=== PATIENT | female | born 2000 | race Caucasian/White ===

== ENCOUNTER 2019-11-17 05:39 | Emergency (ER) | payer OTHER ==
[~2019-11-17] VITALS: Ht 152.4 cm; Wt 54.5 kg
[2019-11-17] MEDS ORDERED: SPRI28TA PO (05:44)
[2019-11-17] MEDS ORDERED: NS 1,000 ML IV ONE (06:30)
[2019-11-17 06:46] LABS: BASO # 0.1 10^3/uL (0.0-0.2); BASO % 0.5 % (0.0-1.0); EOS # 0.3 10^3/uL (0.0-0.5); EOS % 2.9 % (0.0-3.0); HEMATOCRIT 43.5 % (36.0-47.0); HEMOGLOBIN 13.9 g/dl (12.0-15.5); LYMPH # 3.2 10^3/uL (1.5-5.0); LYMPH % 28.8 % (24.0-44.0); MEAN CORPUSCULAR HEMOGLOBIN 30.1 pg (27.0-33.0); MEAN CORPUSCULAR VOLUME 94.2 fl (80.0-96.0); MONO # 0.7 10^3/uL (0.0-0.8); MONO % 6.5 % (0.0-5.0); NEUTROPHILS # 6.8 10^3/uL (1.5-8.5); NEUTROPHILS % 60.9 % (36.0-66.0); PLATELET COUNT, AUTOMATED 273 10^3/uL (150-450); RED BLOOD COUNT 4.62 10^6/uL (4.00-5.40); WHITE BLOOD COUNT 11.1 10^3/uL (4.0-10.0)
[2019-11-17 07:11] LABS: BLOOD UREA NITROGEN 10 MG/DL (7-18); CALCIUM LEVEL 8.1 MG/DL (8.5-10.1); CARBON DIOXIDE LEVEL 27 MEQ/L (21-32); CHLORIDE LEVEL 110 MEQ/L (98-107); CK-MB VALUE MASS < 1.0 NG/ML (<3.6); CPK CREATINE PHOSPHOKINASE 54 U/L (26-192); CREATININE FOR GFR 0.76 MG/DL (0.55-1.30); GLOMERULAR FILTRATION RATE > 60.0 (>60); GLUCOSE, FASTING 96 MG/DL (70-100); MB/CK RELATIVE INDEX 1.85 (< OR =4); POTASSIUM SERUM 4.1 MEQ/L (3.5-5.1); SODIUM LEVEL 143 MEQ/L (136-145); TROPONIN I < 0.02 NG/ML (< 0.10)
[2019-11-17 07:11] LABS: INFLUENZA A AMPLIFICATION NEGATIVE (NEGATIVE); INFLUENZA B AMPLIFICATION NEGATIVE (NEGATIVE)
--- NOTE | 2019-11-17 08:16 | REP ---
Left humerus: Two views. History: Left arm pain. Findings: AP and lateral views demonstrate an intravenous cannula in the antecubital fossa soft tissues. Bones joints and soft tissues are otherwise unremarkable. No fracture or subluxation is seen. Impression: No acute bony abnormality. IV cannula in place. Electronically Signed by Manfred Calles MD 11/17/2019 08:08 A
[2019-11-17 11:07] LABS: AMPHETAMINES LEVEL URINE NEGATIVE (NEGATIVE); BARBITURATES URINE NEGATIVE (NEGATIVE); BENZODIAZEPINES URINE NEGATIVE (NEGATIVE); CANNABINOIDS URINE NEGATIVE (NEGATIVE); COCAINE METABOLITE URINE NEGATIVE (NEGATIVE); METHADONE URINE NEGATIVE (NEGATIVE); OPIATES URINE NEGATIVE (NEGATIVE); PHENCYCLIDINE URINE NEGATIVE (NEGATIVE)
[2019-11-17 11:22] VITALS: BP 110/68
== END 2019-11-17 11:31 | disposition home or self-care (01) ==
LOC: M ED 05:39
DX: M79.622 Pain in left upper arm (principal); M62.838 Other muscle spasm; R53.81 Other malaise; F17.210 Nicotine dependence, cigarettes, uncomplicated; Z79.3 Long term (current) use of hormonal contraceptives

== ENCOUNTER 2019-12-20 19:46 | Emergency (ER) | payer OTHER ==
[~2019-12-20] VITALS: Ht 152.4 cm; Wt 54.0 kg
[~2019-12-20 19:46] MED LIST: SPRI28TA PO
[2019-12-20] MEDS ORDERED: FAMOTIDINE IV BAG 20 MG in IV 1 EA IV ONE (20:30)
[2019-12-20] MEDS ORDERED: methylPREDNISolone INJ 125 MG/2 ML VIAL (J2930) IV ONE (20:30)
[2019-12-20] MEDS ORDERED: diphenhydrAMINE INJ 50MG/ML VIAL (J1200) IV ONE (20:30)
[2019-12-20] MEDS ORDERED: PRED20TA PO (21:58)
[2019-12-20 22:11] VITALS: BP 116/71
== END 2019-12-20 22:15 | disposition home or self-care (01) ==
LOC: M ED 19:46
DX: R06.02 Shortness of breath (principal); T78.1XXA Other adverse food reactions, not elsewhere classified, initial encounter; Z91.013 Allergy to seafood; Z79.3 Long term (current) use of hormonal contraceptives
CPT/HCPCS: 96374; 96375; 99284; J1200; J2930

== ENCOUNTER 2020-02-05 16:03 | Day surgery (SDC) | payer OTHER ==
[~2020-02-05] VITALS: Ht 152.4 cm; Wt 59.4 kg
[~2020-02-05 16:03] MED LIST changes: +PRED20TA PO
[2020-02-05] MEDS ORDERED: KETOROLAC 30 MG/ML VIAL (J1885) IV ONE (16:45)
[2020-02-05] MEDS ORDERED: ONDANSETRON 4MG/2ML VIAL (J2405) IV ONE (16:45)
[2020-02-05 17:17] LABS: BASO % 0.7 % (0.0-1.0); EOS # 0.3 10^3/uL (0.0-0.5); EOS % 5.3 % (0.0-3.0); HEMATOCRIT 41.3 % (36.0-47.0); HEMOGLOBIN 13.3 g/dl (12.0-15.5); LYMPH # 1.8 10^3/uL (1.5-5.0); MEAN CORPUSCULAR HEMOGLOBIN 30.4 pg (27.0-33.0); MEAN CORPUSCULAR HGB CONC 32.2 g/dl (32.0-36.5); MEAN CORPUSCULAR VOLUME 94.3 fl (80.0-96.0); MONO # 0.4 10^3/uL (0.0-0.8); MONO % 6.8 % (0.0-5.0); NEUTROPHILS # 3.3 10^3/uL (1.5-8.5); NEUTROPHILS % 56.9 % (36.0-66.0); PLATELET COUNT, AUTOMATED 245 10^3/uL (150-450); RED BLOOD COUNT 4.38 10^6/uL (4.00-5.40); WHITE BLOOD COUNT 5.8 10^3/uL (4.0-10.0)
--- NOTE | 2020-02-05 17:30 | REPVR ---
PROCEDURE INFORMATION: Exam: CT Abdomen And Pelvis Without Contrast Exam date and time: 02/05/2020 5:09 PM Age: 19 years old Clinical indication: Abdominal pain; Flank; Right; Additional info: Right flank/ lower abd pain TECHNIQUE: Imaging protocol: Computed tomography of the abdomen and pelvis without contrast. Radiation optimization: All CT scans at this facility use at least one of these dose optimization techniques: automated exposure control; mA and/or kV adjustment per patient size (includes targeted exams where dose is matched to clinical indication); or iterative reconstruction. COMPARISON: No relevant prior studies available. FINDINGS: Lungs: No lesions of the lung bases. Liver: There are no focal liver lesions present. Gallbladder and bile ducts: The gallbladder is normal. Pancreas: The pancreas is normal. Spleen: The spleen is normal. Adrenals: The adrenal glands are unremarkable. Kidneys and ureters: No renal calculi are apparent. There is no evidence of hydronephrosis or perinephric stranding. Stomach and bowel: There is no evidence of intestinal obstruction. Appendix: No evidence of appendicitis. Intraperitoneal space: There is prominent free fluid within the pelvis. Vasculature: The aorta is unremarkable. Lymph nodes: Unremarkable. No enlarged lymph nodes. Bladder: The bladder is unremarkable. Reproductive: There appears to be enlargement of the right adnexa but it is not well visualized. There is a poorly defined denser structure within the cul-de-sac likely partially representing the vagina measuring 5.1 x 6.8 cm. Bones/joints: Unremarkable. No acute fracture. Soft tissues: Unremarkable. IMPRESSION: There is a relatively prominent volume of free fluid in the pelvis which could be due to cyst rupture or infection. The uterus and ovaries as well as vagina are poorly assessed on this noncontrast study and could be further evaluated by ultrasound or MRI. The radiodense structure is likely in part the vagina however some hemorrhagic fluid is not excluded. Electronically signed by: Cyndi Pro On 02/05/2020 17:30:08 PM
[2020-02-05 17:57] LABS: ALBUMIN 3.6 GM/DL (3.2-5.2); ALT/SGPT 12 U/L (12-78); BILIRUBIN,DIRECT < 0.1 MG/DL (0.0-0.2); BILIRUBIN,TOTAL 0.3 MG/DL (0.2-1.0); LIPASE 126 U/L (73-393)
[2020-02-05] MEDS ORDERED: MORPHINE 4 MG/ML 1ML VIAL/SYRINGE (J2270) IV ONE (18:00)
--- NOTE | 2020-02-05 19:09 | REPVR ---
PROCEDURE INFORMATION: Exam: US Pelvis Complete, Transabdominal and US Pelvis, Transvaginal Exam date and time: 02/05/2020 6:45 PM Age: 19 years old Clinical indication: Pelvic pain; Additional info: Rlq pain TECHNIQUE: Imaging protocol: Real-time transabdominal and transvaginal pelvic ultrasound (complete) with image documentation. Transvaginal imaging was used for better evaluation of the endometrium and adnexa. COMPARISON: CT ABD PELVIS W/O CONTRAST 02/05/2020 5:06 PM FINDINGS: Uterus/cervix: Uterus measures 7.1 x 3.4 by 4.2 cm. The endometrial is bilayer is not thickened measuring 5.8 mm. Right adnexa: Right ovary measures 4.9 x 3.4 x 4.1 cm. Blood flow is detected. There is a heterogeneous but primarily hypoechoic lesion measuring 3.9 x 1.7 by 4.1 cm. Left adnexa: The left ovary measures 4.2 x 2.5 by 2.8 cm. Blood flow is detected. Free fluid: There is a large amount of free fluid within the pelvis. Bladder: Urinary bladder is unremarkable. Other findings: There is complex hyperechoic material within the cul-de-sac which may represent clotted blood. It measures 5.8 by 3.1 by 8.1 cm. IMPRESSION: 1. There is a probable large hematoma which is thrombosed in the cul-de-sac measuring approximately 5.8 x 3.1 x 8.1 cm. Free fluid is seen throughout the pelvis. 2. Normal appearance of the uterus and left ovary. 3. A cystic structure is seen in the right ovary measuring 3.9 x 1.7 x 4.1 cm which could represent a collapsing hemorrhagic cyst. 4. The etiology of the hemorrhage in the cul-de-sac is not definitely identified. Electronically signed by: Cyndi Pro On 02/05/2020 19:09:04 PM
[2020-02-05] MEDS ORDERED: fentaNYL 250 MCG/5 ML INJECTION (J3010) As Ordered ONE (20:18)
[2020-02-05] MEDS ORDERED: ONDANSETRON 4MG/2ML VIAL (J2405) As Ordered ONE (20:19)
[2020-02-05] MEDS ORDERED: dexameTHASONE 4 MG/ML 1ML VIAL (J1100 PER 1MG) As Ordered ONE (20:19)
[2020-02-05] MEDS ORDERED: KETOROLAC 60 MG/2 ML VIAL (J1885) As Ordered ONE (20:19)
[2020-02-05] MEDS ORDERED: LIDOCAINE 2% INJ 100 MG/5 ML SDV (FOR ANES.) As Ordered ONE (20:19)
[2020-02-05] MEDS ORDERED: ROCURONIUM BROMIDE 50 MG/5 ML VIAL As Ordered ONE (20:19)
[2020-02-05] MEDS ORDERED: MIDAZOLAM INJ 2 MG/2 ML VIAL (J2250) As Ordered ONE (20:19)
[2020-02-05] MEDS ORDERED: propofoL 200 MG/20 ML VIAL As Ordered ONE (20:19)
[2020-02-05] MEDS ORDERED: ACETAMINOPHEN 1000MG 100ML IV BTL (OFIRMEV) (J0131 PER 10MG) As Ordered ONE (21:02)
[2020-02-05] MEDS ORDERED: METOCLOPRAMIDE INJ 10MG/2ML VIAL (J2765) As Ordered ONE (21:18)
[2020-02-05] MEDS ORDERED: LR 1,000 ML IV SCH ×2 (22:00→22:30)
[2020-02-05] MEDS ORDERED: oxyCODONE 5MG TAB As Ordered ONE (22:09)
--- NOTE | 2020-02-05 22:14 | RO ---
DATE OF PROCEDURE: 02/05/2020 PREOPERATIVE DIAGNOSES: Right ovarian torsion. POSTOPERATIVE DIAGNOSES: Hemorrhagic right ovarian cyst. PROCEDURE: SURGEON: Rosalinda Levine MD HAND STRIPER: None. ANESTHESIA: General endotracheal anesthesia. SPECIMENS: None. BRIEF DESCRIPTION OF PROCEDURE: Day was brought to the operating room where sufficient general endotracheal anesthesia was induced. She was prepped, draped, and positioned in the usual sterile fashion with the uterine manipulator placed after the uterus had been sounded to 7.5. The bladder was also emptied. Attention was then turned to the abdomen where a transverse semilunar incision was made below the umbilicus and sharp and blunt dissection were continued to the level of the rectus fascia, which was transversely incised and then secured with #0 Vicryl retention sutures. The peritoneum was then entered under direct visualization. There was no gross blood upon entry into the abdomen and the Doreen cannula was then placed into the peritoneum and under direct visualization in an open laparoscopic technique and secured in place with a #0 Vicryl retention suture. CO2 insufflations were then begun. After adequate CO2 insufflation, the peritoneal cavity was visualized. There were normal shiny peritoneal surfaces throughout. There was no excrescence, exudate or ascites, but there was in the pelvis some bleeding and a slightly enlarged right ovary. There was no evidence of torsion. There was no evidence of disruption of blood supply. There was a normal appearing appendix which is photographed for the operative photos. There were about 300 mL of older darkish blood in the pelvis. There was no active bleeding from the ovary. We were able to manipulate it and see that it had basically deflated from what is most likely a hemorrhagic cyst and it is very likely that as this left the ovary, the presence of the blood was the source of the patient's pain and irritation. She did not have any upper abdominal problems. We placed a little Trendelenburg to move the bowel out of the way. We were able to suction out about 300 mL of blood which was clearly old and not actively bleeding during the case. No other abnormalities. Photos were taken to document the reassuring findings. The ovary was very gently manipulated to reevaluate it. There was no evidence of persistent bleeding or other trouble. The procedure was then ended with the CO2 allowed to escape the abdomen. The fascial wound was closed with #0 Vicryl retention sutures and the skin closed with #3-0 Vicryl in a subcuticular stitch, and a dry sterile dressing then applied. ESTIMATED BLOOD LOSS: From the actual surgery, about 10 mL. FLUID REPLACEMENT: Crystalloid. COMPLICATIONS: None. CONDITION AND DISPOSITION: Day tolerated the procedure well and was recovering in the recovery room in good condition.
[2020-02-05] MEDS ORDERED: NORCO, ANEXSIA 5/325MG TABLET (HYDROcodone/ACETAMINOPHEN) PO PRN (22:30)
[2020-02-05] MEDS ORDERED: fentaNYL 100 MCG/2 ML INJECTION (J3010) IV PRN (22:30)
[2020-02-05] MEDS ORDERED: ONDANSETRON 4MG/2ML VIAL (J2405) IV PRN (22:30)
[2020-02-05] MEDS ORDERED: oxyCODONE 5MG TAB PO PRN (22:30)
[2020-02-05 23:04] VITALS: BP 133/75
== END 2020-02-06 00:20 | disposition home or self-care (01) ==
LOC: M ED 16:03 → M SDC 19:58 → ENRESERV 22:20 → M MS5PR 22:35 → M SDC 02-06 00:20
PROVIDERS: ATTEND Obstetrics & Gynecology
DX: N83.291 Other ovarian cyst, right side (principal); Z91.013 Allergy to seafood
CPT/HCPCS: 36415; 49320; 76830; 76856; 80047; 80076; 81001; 83690; 84702; 85025; 96374; 96375; 99284; J0131; J1100; J1885; J2250; J2270; J2405; J2765; J3010

== ENCOUNTER 2020-02-27 20:21 | Emergency (ER) | payer OTHER ==
[~2020-02-27] VITALS: Ht 154.9 cm; Wt 56.8 kg
[2020-02-27 20:21] VITALS: BP 112/74
[2020-02-27] MEDS ORDERED: ALL10TAB2 PO (20:48)
[2020-02-27] MEDS ORDERED: MUCI600T31 PO (20:48)
[2020-02-27] MEDS ORDERED: NASA1SPR NARES (20:48)
[2020-02-27] MEDS ORDERED: VENTAER INH (20:48)
== END 2020-02-27 21:08 | disposition home or self-care (01) ==
LOC: M ED 20:21
DX: J30.9 Allergic rhinitis, unspecified (principal); F17.210 Nicotine dependence, cigarettes, uncomplicated; Z91.013 Allergy to seafood; Z79.51 Long term (current) use of inhaled steroids; Z79.899 Other long term (current) drug therapy

== ENCOUNTER 2020-04-28 01:54 | Emergency (ER) | payer OTHER ==
[~2020-04-28] VITALS: Ht 154.9 cm; Wt 54.5 kg
[~2020-04-28 01:54] MED LIST changes: +ALL10TAB2 PO; +MUCI600T31 PO; +NASA1SPR NARES; +VENTAER INH
[2020-04-28 02:56] LABS: HEMATOCRIT 42.8 % (36.0-47.0); HEMOGLOBIN 13.8 g/dl (12.0-15.5); MEAN CORPUSCULAR HEMOGLOBIN 29.6 pg (27.0-33.0); MEAN CORPUSCULAR HGB CONC 32.2 g/dl (32.0-36.5); MEAN CORPUSCULAR VOLUME 91.8 fl (80.0-96.0); PLATELET COUNT, AUTOMATED 287 10^3/uL (150-450); RED BLOOD COUNT 4.66 10^6/uL (4.00-5.40); WHITE BLOOD COUNT 8.8 10^3/uL (4.0-10.0)
[2020-04-28 03:19] LABS: HCG, SERUM QUALITATIVE NEGATIVE (NEGATIVE)
[2020-04-28 03:20] LABS: ALBUMIN 3.8 GM/DL (3.2-5.2); ALT/SGPT 18 U/L (12-78); BILIRUBIN,TOTAL < 0.1 MG/DL (0.2-1.0); BLOOD UREA NITROGEN 9 MG/DL (7-18); CALCIUM LEVEL 9.2 MG/DL (8.5-10.1); CARBON DIOXIDE LEVEL 27 MEQ/L (21-32); CHLORIDE LEVEL 108 MEQ/L (98-107); GLOMERULAR FILTRATION RATE > 60.0 (>60); GLUCOSE, FASTING 80 MG/DL (70-100); POTASSIUM SERUM 4.3 MEQ/L (3.5-5.1); SODIUM LEVEL 140 MEQ/L (136-145); TOTAL PROTEIN 7.3 GM/DL (6.4-8.2)
[2020-04-28 04:27] LABS: APPEARANCE, URINE HAZY (CLEAR); BACTERIA, URINE AUTO NEGATIVE (NEGATIVE); BILIRUBIN, URINE AUTO NEGATIVE (NEGATIVE); BLOOD, URINE BLOOD NEGATIVE (NEGATIVE); COLOR, URINE YELLOW (YELLOW); GLUCOSE, URINE (UA) AUTO NEGATIVE (NEGATIVE); KETONE, URINE AUTO NEGATIVE (NEGATIVE); LEUKOCYTE ESTERASE, URINE AUTO NEGATIVE (NEGATIVE); MUCUS, URINE SMALL (NEGATIVE); NITRITE, URINE AUTO NEGATIVE (NEGATIVE); PROTEIN, URINE AUTO NEGATIVE (NEGATIVE); RBC, URINE AUTO 3 /HPF (0-3); SPECIFIC GRAVITY URINE AUTO 1.028 (1.002-1.035); SQUAMOUS EPITHELIAL CELL UR AU 3 /HPF (0-6); UROBILINOGEN, URINE AUTO 0.2 mg/dL (0.0-2.0); WBC, URINE AUTO 2 /HPF (0-3)
[2020-04-28] MEDS ORDERED: ISOVUE-370 76% 100ML VIAL As Ordered ONE (04:47)
--- NOTE | 2020-04-28 05:12 | REPVR ---
PROCEDURE INFORMATION: Exam: CT Abdomen And Pelvis With Contrast Exam date and time: 04/28/2020 4:12 AM Age: 20 years old Clinical indication: Abdominal pain; Localized; Right lower quadrant (rlq); Additional info: Rlq pain TECHNIQUE: Imaging protocol: Computed tomography of the abdomen and pelvis with intravenous contrast. Radiation optimization: All CT scans at this facility use at least one of these dose optimization techniques: automated exposure control; mA and/or kV adjustment per patient size (includes targeted exams where dose is matched to clinical indication); or iterative reconstruction. Contrast material: ISO; Contrast volume: 100 ml; Contrast route: INTRAVENOUS (IV); COMPARISON: CT ABD PELVIS W/O CONTRAST 02/05/2020 5:06 PM FINDINGS: Liver: Normal. No mass. Gallbladder and bile ducts: Normal. No calcified stones. No ductal dilation. Pancreas: Normal. No ductal dilation. Spleen: Normal. No splenomegaly. Adrenals: Normal. No mass. Kidneys and ureters: Normal. No hydronephrosis. Stomach and bowel: Unremarkable. No obstruction. No mucosal thickening. Appendix: Appendix is normal. Intraperitoneal space: Unremarkable. No free air. No significant fluid collection. Vasculature: Unremarkable. No abdominal aortic aneurysm. Lymph nodes: Unremarkable. No enlarged lymph nodes. Bladder: Unremarkable as visualized. Reproductive: Uterus is normal. Thick-walled cystic lesion in the left ovary measuring 1.7 x 1.3 cm. Bones/joints: Pectus excavatum. No acute fracture. Soft tissues: Unremarkable. IMPRESSION: 1. Appendix is unremarkable. 2. Thick-walled cystic lesion in the left ovary. Probably corpus luteum. No follow-up is necessary. Electronically signed by: Stephanie Hall On 04/28/2020 05:11:27 AM
[2020-04-28 05:53] LABS: CHLAMYDIA DNA AMPLIFICATION NEGATIVE (NEGATIVE); GC DNA AMPLIFICATION NEGATIVE (NEGATIVE)
[2020-04-28] MEDS ORDERED: NORCO 5/325MG TABLET (BULK FOR ED) PO ONE (06:15)
[2020-04-28 06:18] VITALS: BP 124/70
== END 2020-04-28 06:19 | disposition home or self-care (01) ==
LOC: M ED 01:54
DX: N83.202 Unspecified ovarian cyst, left side (principal)
CPT/HCPCS: 74177; 80053; 81001; 84703; 85027; 87491; 87591; 99283; Q9967

== ENCOUNTER 2020-04-30 17:26 | Emergency (ER) | payer OTHER ==
[~2020-04-30] VITALS: Ht 154.9 cm; Wt 55.8 kg
[2020-04-30] MEDS ORDERED: CELE1CAP9 (17:31)
[2020-04-30] MEDS ORDERED: KETOROLAC 30 MG/ML 1ML VIAL IV ONE (18:15)
[2020-04-30 18:40] LABS: BASO # 0.1 10^3/uL (0.0-0.2); BASO % 0.5 % (0.0-1.0); EOS # 0.4 10^3/uL (0.0-0.5); EOS % 3.6 % (0.0-3.0); HEMATOCRIT 43.1 % (36.0-47.0); HEMOGLOBIN 13.9 g/dl (12.0-15.5); LYMPH # 1.7 10^3/uL (1.5-5.0); LYMPH % 16.4 % (24.0-44.0); MEAN CORPUSCULAR HEMOGLOBIN 29.8 pg (27.0-33.0); MEAN CORPUSCULAR HGB CONC 32.3 g/dl (32.0-36.5); MEAN CORPUSCULAR VOLUME 92.5 fl (80.0-96.0); MONO # 0.7 10^3/uL (0.0-0.8); MONO % 6.8 % (0.0-5.0); NEUTROPHILS # 7.6 10^3/uL (1.5-8.5); NEUTROPHILS % 72.3 % (36.0-66.0); PLATELET COUNT, AUTOMATED 248 10^3/uL (150-450); RED BLOOD COUNT 4.66 10^6/uL (4.00-5.40); WHITE BLOOD COUNT 10.5 10^3/uL (4.0-10.0)
[2020-04-30 19:41] LABS: ALBUMIN 3.5 GM/DL (3.2-5.2); BILIRUBIN,DIRECT 0.1 MG/DL (0.0-0.2); BILIRUBIN,TOTAL 0.2 MG/DL (0.2-1.0); TOTAL PROTEIN 6.6 GM/DL (6.4-8.2)
--- NOTE | 2020-04-30 20:27 | REPVR ---
PROCEDURE INFORMATION: Exam: US Nonobstetric Pelvis; Complete Exam date and time: 04/30/2020 7:34 PM Age: 20 years old Clinical indication: Pelvic pain; Additional info: Lower abd pain, more severe pain, known cyst TECHNIQUE: Imaging protocol: Transabdominal pelvic nonobstetric ultrasound. Complete exam. Real time ultrasound with image documentation. COMPARISON: US PELVIC NON-OB COMPLETE 02/05/2020 6:13 PM FINDINGS: Uterus/cervix: The uterus measures 7.6 x 3.2 x 5.2 cm. The endometrium measures 3.1 mm in width. Right adnexa: Right ovary measures 3.4 x 1.8 x 3.5 cm. Follicles are apparent. Blood flow is detected. Left adnexa: Left ovary measures 3.6 x 1.6 x 2.2 cm. Follicles are apparent. Blood flow is detected. Free fluid: No significant free fluid in the cul-de-sac. Bladder: Unremarkable. IMPRESSION: The uterus and ovaries are normal in appearance for age. Electronically signed by: Cyndi Pro On 04/30/2020 20:26:36 PM
[2020-04-30] MEDS ORDERED: KETO10TAB PO (20:58)
[2020-04-30 21:10] VITALS: BP 113/66
== END 2020-04-30 21:12 | disposition home or self-care (01) ==
LOC: M ED 17:26
DX: N92.0 Excessive and frequent menstruation with regular cycle (principal); J45.909 Unspecified asthma, uncomplicated; Z79.899 Other long term (current) drug therapy; Z91.013 Allergy to seafood
CPT/HCPCS: 36415; 76856; 80047; 80076; 81001; 83690; 84702; 85025; 93976; 96374; 99284; J1885

== ENCOUNTER 2020-07-02 23:38 | Emergency (ER) | payer OTHER ==
[~2020-07-02] VITALS: Ht 154.9 cm; Wt 54.5 kg
[~2020-07-02 23:38] MED LIST changes: +CELE1CAP9; +KETO10TAB PO
[2020-07-02] MEDS ORDERED: PREN29TA4 PO (23:45)
[2020-07-03] MEDS ORDERED: NS 1,000 ML IV ONE (00:15)
[2020-07-03] MEDS ORDERED: ACETAMINOPHEN 500 MG TAB PO ONE (00:15)
[2020-07-03] MEDS ORDERED: ONDANSETRON 4MG/2ML VIAL IV ONE (00:15)
[2020-07-03] MEDS ORDERED: METAL LOCK LOOP XX ONE (00:43)
[2020-07-03 00:51] LABS: BASO # 0.1 10^3/uL (0.0-0.2); BASO % 0.7 % (0.0-1.0); EOS # 0.5 10^3/uL (0.0-0.5); EOS % 4.3 % (0.0-3.0); HEMATOCRIT 40.6 % (36.0-47.0); HEMOGLOBIN 13.5 g/dl (12.0-15.5); LYMPH # 2.8 10^3/uL (1.5-5.0); LYMPH % 26.5 % (24.0-44.0); MEAN CORPUSCULAR HEMOGLOBIN 30.5 pg (27.0-33.0); MEAN CORPUSCULAR HGB CONC 33.3 g/dl (32.0-36.5); MEAN CORPUSCULAR VOLUME 91.6 fl (80.0-96.0); MONO # 0.8 10^3/uL (0.0-0.8); MONO % 7.4 % (0.0-5.0); NEUTROPHILS # 6.4 10^3/uL (1.5-8.5); NEUTROPHILS % 60.9 % (36.0-66.0); PLATELET COUNT, AUTOMATED 307 10^3/uL (150-450); RED BLOOD COUNT 4.43 10^6/uL (4.00-5.40); WHITE BLOOD COUNT 10.4 10^3/uL (4.0-10.0)
--- NOTE | 2020-07-03 01:01 | REPVR ---
PROCEDURE INFORMATION: Exam: US First Trimester, Transabdominal Exam date and time: 07/03/2020 12:40 AM Age: 20 years old Clinical indication: complicated by abdominal or pelvic pain; Right lower quadrant; First trimester; Gestational age or lmp: 05/31/2020; ; Additional info: +at home preg, pelvic pain, HX torsion TECHNIQUE: Imaging protocol: Real-time transabdominal obstetrical ultrasound of the maternal pelvis and a first trimester , less than 14 weeks 0 days, with image documentation. COMPARISON: CT ABD/PEL W/IV CONTRAST ONLY 04/28/2020 4:48 AM FINDINGS: Gestation: See "Uterus" finding. MATERNAL: Uterus: The uterus measures 8.1 cm in its cephalocaudad dimension and 4.5 x 6.3 cm in its AP and lateral dimensions. The endometrium measures 11 mm. No gestational sac is seen. Cervix: Unremarkable. Right adnexa: The right ovary measures 2.3 x 1.9 x 2.4 cm and demonstrates normal blood flow. Left adnexa: The left ovary measures 2.7 x 2.4 x 3.0 cm and demonstrates normal blood flow. Intraperitoneal space: No intraperitoneal free fluid. Other findings: EV exam is declined. IMPRESSION: Negative pelvic sonogram. No intrauterine gestational sac is identified. Findings may reflect recent spontaneous AB or very early gestation. Ectopic is not excluded. Serial beta hCG levels may be of benefit for further evaluation. Electronically signed by: Missael Heller On 07/03/2020 01:00:52 AM
[2020-07-03 01:37] LABS: BLOOD UREA NITROGEN 16 MG/DL (7-18); CALCIUM LEVEL 8.9 MG/DL (8.5-10.1); CARBON DIOXIDE LEVEL 24 MEQ/L (21-32); CHLORIDE LEVEL 108 MEQ/L (98-107); CREATININE FOR GFR 0.66 MG/DL (0.55-1.30); GLOMERULAR FILTRATION RATE > 60.0 (>60); GLUCOSE, FASTING 89 MG/DL (70-100); HCG, SERUM QUANTITATIVE 530 MIU/ML; POTASSIUM SERUM 4.9 MEQ/L (3.5-5.1); SODIUM LEVEL 137 MEQ/L (136-145)
[2020-07-03] MEDS ORDERED: ONDA4TAB6 PO (01:54)
[2020-07-03 02:02] VITALS: BP 117/66
== END 2020-07-03 02:09 | disposition home or self-care (01) ==
LOC: M ED 23:38
DX: O99.89 Other specified diseases and conditions complicating pregnancy, childbirth and the puerperium (principal); R10.2 Pelvic and perineal pain; O99.330 Smoking (tobacco) complicating pregnancy, unspecified trimester; F17.200 Nicotine dependence, unspecified, uncomplicated; Z3A.00 Weeks of gestation of pregnancy not specified; Z87.42 Personal history of other diseases of the female genital tract; Z98.890 Other specified postprocedural states; Z84.2 Family history of other diseases of the genitourinary system
CPT/HCPCS: 76801; 80048; 81001; 84702; 85025; 93976; 96374; 99284; J2405

== ENCOUNTER 2020-07-09 12:00 | Emergency (ER) | payer OTHER ==
[~2020-07-09] VITALS: Ht 152.4 cm; Wt 54.5 kg
[~2020-07-09 12:00] MED LIST changes: +ONDA4TAB6 PO; +PREN29TA4 PO
[2020-07-09 12:32] LABS: BASO % 0.5 % (0.0-1.0); EOS # 0.5 10^3/uL (0.0-0.5); HEMATOCRIT 40.9 % (36.0-47.0); HEMOGLOBIN 13.5 g/dl (12.0-15.5); MEAN CORPUSCULAR HEMOGLOBIN 30.8 pg (27.0-33.0); MEAN CORPUSCULAR VOLUME 93.4 fl (80.0-96.0); MONO # 0.7 10^3/uL (0.0-0.8); MONO % 8.3 % (0.0-5.0); NEUTROPHILS # 4.6 10^3/uL (1.5-8.5); NEUTROPHILS % 58.9 % (36.0-66.0); PLATELET COUNT, AUTOMATED 275 10^3/uL (150-450); RED BLOOD COUNT 4.38 10^6/uL (4.00-5.40); WHITE BLOOD COUNT 7.9 10^3/uL (4.0-10.0)
[2020-07-09 13:16] LABS: BLOOD UREA NITROGEN 6 MG/DL (7-18); CALCIUM LEVEL 9.1 MG/DL (8.5-10.1); CARBON DIOXIDE LEVEL 26 MEQ/L (21-32); CHLORIDE LEVEL 109 MEQ/L (98-107); CREATININE FOR GFR 0.58 MG/DL (0.55-1.30); GLOMERULAR FILTRATION RATE > 60.0 (>60); GLUCOSE, FASTING 63 MG/DL (70-100); HCG, SERUM QUANTITATIVE 4780 MIU/ML; POTASSIUM SERUM 3.8 MEQ/L (3.5-5.1); SODIUM LEVEL 139 MEQ/L (136-145)
--- NOTE | 2020-07-09 14:58 | REPVR ---
PROCEDURE INFORMATION: Exam: US First Trimester, Transabdominal and US , Transvaginal US Duplex Artery and Vein of the Abdominal and/or Reproductive Organs, Complete Exam date and time: 07/09/2020 2:25 PM Age: 20 years old Clinical indication: complicated by abdominal or pelvic pain; Lower; First trimester; Gestational age or lmp: 05/31/2020; ; Additional info: Pelvic cramping, 5-6 weeks preg TECHNIQUE: Imaging protocol: Real-time transabdominal obstetrical ultrasound of the maternal pelvis and a first trimester , less than 14 weeks 0 days, with image documentation. Transvaginal imaging was used for better evaluation of the fetus and adnexa. Real-time duplex ultrasound scan of the arterial and venous flow of the abdominal and/or reproductive organs with B-mode, color Doppler flow and spectral waveform analysis with image documentation. Exam focused on the region of clinical concern. Complete exam. Duplex images required to evaluate vascular conditions. COMPARISON: 1ST TRIMESTER US 07/03/2020 12:29 AM FINDINGS: Gestation: There is a new single intrauterine sac-like structure with mean diameter of 6 mm, corresponding to an estimated gestational age of 5 weeks 1 day, were it to represent a gestational sac. It appears to contain a small yolk sac, without pole or heart tones identified. MATERNAL: Uterus: The anteverted uterus measures 9.7 x 4.3 x 4.8 cm transvaginally. It is homogeneous in echotexture, without demonstrated lesion. Right adnexa: The right ovary measures 2.3 x 1.8 x 2.7 cm as seen transabdominally only. It has an unremarkable appearance and demonstrates internal arterial and venous flow. Peak systolic velocity 13.1 cm/s, end-diastolic velocity 9.0 cm/s, resistive index 0.32. Left adnexa: The left ovary measures 2.9 x 3.0 x 1.9 cm, as seen transvaginally only. Newly demonstrated within it is a 1.6 x 1.4 x 1.6 cm slightly hypoechoic, questionably vascular lesion. There is internal arterial and venous flow. Peak systolic velocity 14.7 cm/s, end-diastolic velocity 6.6 cm/s, resistive index 0.56. Intraperitoneal space: No significant free fluid is demonstrated in the cul-de-sac, nor is any extraovarian adnexal mass. IMPRESSION: 1. Intrauterine gestational sac-like structure, new since 07/03/20, which would correspond to an estimated gestational age of 5 weeks 1 day were it to represent a gestational sac. It appears to have a yolk sac, without pole or heart tones identified. 2. New 1.6 cm slightly hypoechoic, questionably vascular lesion in the left ovary, could represent a complex corpus luteum or less likely an ectopic given the presence of the new intrauterine sac-like structure. Recommend close clinical correlation, with serial beta-HCGs and followup ultrasound as clinically appropriate. 3. Unremarkable right ovary. 4. Normal internal flow to both ovaries without torsion. Electronically signed by: Malik Davis On 07/09/2020 14:57:48 PM
[2020-07-09 15:51] VITALS: BP 128/79
== END 2020-07-09 15:53 | disposition home or self-care (01) ==
LOC: M ED 12:00
DX: O34.81 Maternal care for other abnormalities of pelvic organs, first trimester (principal); N83.202 Unspecified ovarian cyst, left side; Z87.42 Personal history of other diseases of the female genital tract; O99.331 Smoking (tobacco) complicating pregnancy, first trimester; F17.210 Nicotine dependence, cigarettes, uncomplicated; Z3A.01 Less than 8 weeks gestation of pregnancy; Z91.013 Allergy to seafood

== ENCOUNTER → 2020-07-11 | Outpatient (CLI) | payer OTHER ==
[~2020-07-11] MED LIST changes: +PROC1CRE TOP; +REGL10TA6 PO
== END ==
LOC: M LAB 11:32
PROVIDERS: ATTEND Physician Assistant
DX: Z32.00 Encounter for pregnancy test, result unknown (principal)

== ENCOUNTER 2020-07-12 19:22 | Emergency (ER) | payer OTHER ==
[~2020-07-12] VITALS: Ht 154.9 cm; Wt 54.5 kg
[~2020-07-12 19:22] MED LIST changes: -PROC1CRE TOP; -REGL10TA6 PO
[2020-07-12 20:10] LABS: BASO # 0.1 10^3/uL (0.0-0.2); BASO % 0.6 % (0.0-1.0); EOS # 0.4 10^3/uL (0.0-0.5); EOS % 3.8 % (0.0-3.0); HEMATOCRIT 43.2 % (36.0-47.0); LYMPH # 2.6 10^3/uL (1.5-5.0); LYMPH % 23.5 % (24.0-44.0); MEAN CORPUSCULAR HGB CONC 32.4 g/dl (32.0-36.5); MEAN CORPUSCULAR VOLUME 92.7 fl (80.0-96.0); MONO # 0.9 10^3/uL (0.0-0.8); MONO % 8.3 % (0.0-5.0); NEUTROPHILS # 6.9 10^3/uL (1.5-8.5); NEUTROPHILS % 63.6 % (36.0-66.0); PLATELET COUNT, AUTOMATED 317 10^3/uL (150-450); RED BLOOD COUNT 4.66 10^6/uL (4.00-5.40); WHITE BLOOD COUNT 10.9 10^3/uL (4.0-10.0)
--- NOTE | 2020-07-12 22:34 | REPVR ---
PROCEDURE INFORMATION: Exam: US First Trimester, Transabdominal Exam date and time: 07/12/2020 9:37 PM Age: 20 years old Clinical indication: Lmp or gestational age (in weeks): 05/31/20; Antepartum complications; Bleeding; ; Additional info: Vaginal spotting, 5 wks preg TECHNIQUE: Imaging protocol: Real-time transabdominal obstetrical ultrasound of the maternal pelvis and a first trimester , less than 14 weeks 0 days, with image documentation. COMPARISON: 1ST TRIMESTER US 07/09/2020 2:08 PM FINDINGS: Gestation: The mean gestational sac diameter is 1.23 cm. A single intrauterine gestational sac is identified, with yolk sac. No pole is identified at this time. Embryonic/ heart rate: N/A. Placenta: No visualized subchorionic bleed. Amniotic fluid: Amniotic fluid is subjectively normal for gestational age. BIOMETRY: Gestational age (AUA): The estimated gestational age is 6 weeks 0 days. Estimated due date (AUA): The estimated date of delivery is 03/07/2021. MATERNAL: Uterus: The uterus measures 8.1 x 4.6 x 4.9 cm. No uterine mass identified. Cervix: Limited evaluation. Right adnexa: There is preservation of blood flow within the right ovary. Multiple follicles are identified within the right ovary. Left adnexa: There is preservation of blood flow within the left ovary. A small hypoechoic focus is visualized within the left ovary. This is suggestive of a follicle or small cyst. This is subcentimeter in size. Intraperitoneal space: No intraperitoneal free fluid. IMPRESSION: 1. A single intrauterine gestational sac is identified, with yolk sac. No pole is identified at this time. Follow-up ultrasonography is recommended. 2. The estimated gestational age is 6 weeks 0 days. 3. A subcentimeter hypoechoic focus is visualized within the left ovary. This is suggestive of a follicle or small cyst. Electronically signed by: Jackson Ramos On 07/12/2020 22:34:08 PM
[2020-07-12 23:00] VITALS: BP 112/72
== END 2020-07-12 23:01 | disposition home or self-care (01) ==
LOC: M ED 19:22
DX: O46.91 Antepartum hemorrhage, unspecified, first trimester (principal); O99.331 Smoking (tobacco) complicating pregnancy, first trimester; Z3A.01 Less than 8 weeks gestation of pregnancy; Z91.013 Allergy to seafood

== ENCOUNTER 2020-07-30 18:42 | Emergency (ER) | payer OTHER ==
[~2020-07-30] VITALS: Ht 154.9 cm; Wt 54.2 kg
[2020-07-30 19:18] LABS: BASO # 0.1 10^3/uL (0.0-0.2); BASO % 0.5 % (0.0-1.0); EOS # 0.3 10^3/uL (0.0-0.5); HEMATOCRIT 41.3 % (36.0-47.0); HEMOGLOBIN 13.7 g/dl (12.0-15.5); LYMPH # 2.3 10^3/uL (1.5-5.0); LYMPH % 22.3 % (24.0-44.0); MEAN CORPUSCULAR HEMOGLOBIN 30.3 pg (27.0-33.0); MEAN CORPUSCULAR HGB CONC 33.2 g/dl (32.0-36.5); MEAN CORPUSCULAR VOLUME 91.4 fl (80.0-96.0); MONO # 0.7 10^3/uL (0.0-0.8); MONO % 6.6 % (0.0-5.0); NEUTROPHILS # 6.8 10^3/uL (1.5-8.5); NEUTROPHILS % 67.3 % (36.0-66.0); PLATELET COUNT, AUTOMATED 277 10^3/uL (150-450); RED BLOOD COUNT 4.52 10^6/uL (4.00-5.40); WHITE BLOOD COUNT 10.1 10^3/uL (4.0-10.0)
[2020-07-30 20:04] LABS: BLOOD UREA NITROGEN 6 MG/DL (7-18); CALCIUM LEVEL 9.1 MG/DL (8.5-10.1); CARBON DIOXIDE LEVEL 26 MEQ/L (21-32); CHLORIDE LEVEL 106 MEQ/L (98-107); CREATININE FOR GFR 0.49 MG/DL (0.55-1.30); GLOMERULAR FILTRATION RATE > 60.0 (>60); GLUCOSE, FASTING 85 MG/DL (70-100); HCG, SERUM QUANTITATIVE 77918 MIU/ML; POTASSIUM SERUM 4.2 MEQ/L (3.5-5.1); SODIUM LEVEL 139 MEQ/L (136-145)
[2020-07-30 20:50] VITALS: BP 128/75
--- NOTE | 2020-07-30 20:57 | REPVR ---
PROCEDURE INFORMATION: Exam: US First Trimester, Transabdominal Exam date and time: 07/30/2020 8:01 PM Age: 20 years old Clinical indication: Lmp or gestational age (in weeks): 8; Other: Vag bleeding; ; Additional info: Bleeding in preg TECHNIQUE: Imaging protocol: Real-time transabdominal obstetrical ultrasound of the maternal pelvis and a first trimester , less than 14 weeks 0 days, with image documentation. COMPARISON: 1ST TRIMESTER US 07/12/2020 9:23 PM FINDINGS: Gestation: Single gestational sac demonstrated in the uterus. Single pole demonstrated within the gestational sac with a crown-rump length of 19 mm. Embryonic/ heart rate: heart rate is 163 bpm. Placenta: Unremarkable. No subchorionic bleed. Amniotic fluid: Amniotic fluid is normal for gestational age. BIOMETRY: Gestational age (AUA): Gestational age based on crown-rump length is 8 weeks 4 days which corresponds to LMP of 05/31/2020. MATERNAL: Uterus: Unremarkable. Cervix: Unremarkable. Right adnexa: Unremarkable. Left adnexa: Unremarkable. Intraperitoneal space: No intraperitoneal free fluid. IMPRESSION: Unremarkable 1st trimester scan at 8 weeks 4 days with concordant size and clinical dates of 8 weeks 4 days. Electronically signed by: Mark Finley On 07/30/2020 20:57:12 PM
[2020-07-30 22:45] LABS: CHLAMYDIA DNA AMPLIFICATION NEGATIVE (NEGATIVE); GC DNA AMPLIFICATION NEGATIVE (NEGATIVE)
== END 2020-07-30 20:59 | disposition home or self-care (01) ==
LOC: M ED 18:42
DX: O20.9 Hemorrhage in early pregnancy, unspecified (principal); Z3A.08 8 weeks gestation of pregnancy; O99.331 Smoking (tobacco) complicating pregnancy, first trimester; F17.210 Nicotine dependence, cigarettes, uncomplicated; Z87.42 Personal history of other diseases of the female genital tract; Z91.013 Allergy to seafood

== ENCOUNTER 2020-08-01 22:18 | Emergency (ER) | payer OTHER ==
[~2020-08-01] VITALS: Ht 154.9 cm; Wt 54.1 kg
[2020-08-01 22:19] VITALS: BP 119/73
== END 2020-08-02 00:21 | disposition home or self-care (01) ==
LOC: M ED 22:18
DX: O99.511 Diseases of the respiratory system complicating pregnancy, first trimester (principal); J02.8 Acute pharyngitis due to other specified organisms; O99.891 Other specified diseases and conditions complicating pregnancy; R30.0 Dysuria; Z3A.08 8 weeks gestation of pregnancy; O99.331 Smoking (tobacco) complicating pregnancy, first trimester; F17.210 Nicotine dependence, cigarettes, uncomplicated

== ENCOUNTER → 2020-08-06 | Outpatient (REF) | payer OTHER ==
[~2020-08-06] MED LIST changes: +PROC1CRE TOP; +REGL10TA6 PO
[2020-08-06 17:47] LABS: HEMATOCRIT 43.6 % (36.0-47.0); HEMOGLOBIN 14.2 g/dl (12.0-15.5); MEAN CORPUSCULAR HEMOGLOBIN 30.3 pg (27.0-33.0); MEAN CORPUSCULAR HGB CONC 32.6 g/dl (32.0-36.5); PLATELET COUNT, AUTOMATED 305 10^3/uL (150-450); RED BLOOD COUNT 4.69 10^6/uL (4.00-5.40); WHITE BLOOD COUNT 12.4 10^3/uL (4.0-10.0)
[2020-08-06 19:01] LABS: HEPATITIS C VIRUS ABY INDEX 0.2 INDEX (<0.8); HIV 1&2 SCREEN CENTAUR NEGATIVE (NEGATIVE)
== END ==
LOC: M PLALAB 15:07
PROVIDERS: ATTEND Obstetrics & Gynecology
DX: Z34.01 Encounter for supervision of normal first pregnancy, first trimester (principal)

== ENCOUNTER 2020-08-14 21:02 | Emergency (ER) | payer OTHER ==
[~2020-08-14] VITALS: Ht 154.9 cm; Wt 54.5 kg
[~2020-08-14 21:02] MED LIST changes: -PROC1CRE TOP; -REGL10TA6 PO
[2020-08-14 22:16] LABS: BASO % 0.3 % (0.0-1.0); EOS # 0.3 10^3/uL (0.0-0.5); EOS % 3.2 % (0.0-3.0); HEMATOCRIT 40.9 % (36.0-47.0); HEMOGLOBIN 13.4 g/dl (12.0-15.5); LYMPH # 2.2 10^3/uL (1.5-5.0); LYMPH % 22.9 % (24.0-44.0); MEAN CORPUSCULAR HEMOGLOBIN 30.3 pg (27.0-33.0); MEAN CORPUSCULAR HGB CONC 32.8 g/dl (32.0-36.5); MEAN CORPUSCULAR VOLUME 92.5 fl (80.0-96.0); MONO # 0.6 10^3/uL (0.0-0.8); MONO % 6.3 % (0.0-5.0); NEUTROPHILS # 6.4 10^3/uL (1.5-8.5); NEUTROPHILS % 67.1 % (36.0-66.0); PLATELET COUNT, AUTOMATED 265 10^3/uL (150-450); RED BLOOD COUNT 4.42 10^6/uL (4.00-5.40); WHITE BLOOD COUNT 9.5 10^3/uL (4.0-10.0)
[2020-08-14 23:12] LABS: ALBUMIN 3.5 GM/DL (3.2-5.2); ALT/SGPT 14 U/L (12-78); BILIRUBIN,DIRECT < 0.1 MG/DL (0.0-0.2); BILIRUBIN,TOTAL 0.1 MG/DL (0.2-1.0); HCG, SERUM QUANTITATIVE 27219 MIU/ML; LIPASE 162 U/L (73-393)
--- NOTE | 2020-08-15 00:06 | REPVR ---
PROCEDURE INFORMATION: Exam: US First Trimester, Transabdominal Exam date and time: 08/14/2020 11:40 PM Age: 20 years old Clinical indication: Other: Llq pain; Gestational age or lmp: 10w 5d; TECHNIQUE: Imaging protocol: Real-time transabdominal obstetrical ultrasound of the maternal pelvis and a first trimester , less than 14 weeks 0 days, with image documentation. COMPARISON: 1ST TRIMESTER US 07/30/2020 8:16 PM FINDINGS: Intrauterine gestational sac with decidual reaction is present. Anterior placental position No evidence of implantational hemorrhage. Yolk sac is present. pole is identified, measuring 37 mm in length. Doppler demonstrates heart rate of one hundred sixty beats/min. Right ovary measures 2.7 x 2.2 x 2.2 cm in size. Left ovary is not visualized. Right ovary demonstrates normal Doppler flow. No abnormal volume of free pelvic fluid. IMPRESSION: Early intrauterine at 10 weeks 5 days estimated gestational age. No complication. Electronically signed by: Sj Green On 08/15/2020 00:06:27 AM
[2020-08-15] MEDS ORDERED: PROC1CRE TOP (00:30)
[2020-08-15] MEDS ORDERED: REGL10TA6 PO (00:30)
[2020-08-15 00:43] VITALS: BP 126/74
== END 2020-08-15 00:57 | disposition home or self-care (01) ==
LOC: M ED 21:02
DX: O22.41 Hemorrhoids in pregnancy, first trimester (principal); O99.611 Diseases of the digestive system complicating pregnancy, first trimester; R19.7 Diarrhea, unspecified; O21.9 Vomiting of pregnancy, unspecified; O99.331 Smoking (tobacco) complicating pregnancy, first trimester; F17.210 Nicotine dependence, cigarettes, uncomplicated; Z91.013 Allergy to seafood; Z3A.10 10 weeks gestation of pregnancy

== ENCOUNTER 2020-08-19 20:14 | Emergency (ER) | payer OTHER ==
[~2020-08-19] VITALS: Ht 154.9 cm; Wt 53.2 kg
[~2020-08-19 20:14] MED LIST changes: +PROC1CRE TOP; +REGL10TA6 PO
[2020-08-19 20:15] VITALS: BP 127/82
[2020-08-19] MEDS ORDERED: ACETAMINOPHEN TAB 650MG DOSE (2X325MG) PO ONE (21:30)
[2020-08-19 22:21] LABS: BASO # 0.1 10^3/uL (0.0-0.2); BASO % 0.6 % (0.0-1.0); EOS # 0.4 10^3/uL (0.0-0.5); EOS % 4.1 % (0.0-3.0); HEMATOCRIT 40.1 % (36.0-47.0); HEMOGLOBIN 13.1 g/dl (12.0-15.5); LYMPH # 2.2 10^3/uL (1.5-5.0); LYMPH % 25.7 % (24.0-44.0); MEAN CORPUSCULAR HGB CONC 32.7 g/dl (32.0-36.5); MONO # 0.6 10^3/uL (0.0-0.8); MONO % 7.5 % (0.0-5.0); NEUTROPHILS # 5.3 10^3/uL (1.5-8.5); NEUTROPHILS % 61.7 % (36.0-66.0); PLATELET COUNT, AUTOMATED 274 10^3/uL (150-450); RED BLOOD COUNT 4.36 10^6/uL (4.00-5.40); WHITE BLOOD COUNT 8.5 10^3/uL (4.0-10.0)
[2020-08-19 22:26] LABS: APPEARANCE, URINE HAZY (CLEAR); BACTERIA, URINE AUTO NEGATIVE (NEGATIVE); BILIRUBIN, URINE AUTO NEGATIVE (NEGATIVE); BLOOD, URINE BLOOD NEGATIVE (NEGATIVE); CALCIUM OXALATE CRYSTALS SMALL; COLOR, URINE YELLOW (YELLOW); GLUCOSE, URINE (UA) AUTO NEGATIVE (NEGATIVE); KETONE, URINE AUTO NEGATIVE (NEGATIVE); LEUKOCYTE ESTERASE, URINE AUTO NEGATIVE (NEGATIVE); MUCUS, URINE SMALL (NEGATIVE); NITRITE, URINE AUTO NEGATIVE (NEGATIVE); PROTEIN, URINE AUTO NEGATIVE (NEGATIVE); RBC, URINE AUTO 2 /HPF (0-3); SPECIFIC GRAVITY URINE AUTO 1.021 (1.002-1.035); SQUAMOUS EPITHELIAL CELL UR AU 5 /HPF (0-6); TRANSITIONAL EPITHELIAL AUTO <1 /HPF; UROBILINOGEN, URINE AUTO 0.2 mg/dL (0.0-2.0); WBC, URINE AUTO 1 /HPF (0-3)
[2020-08-19 23:06] LABS: ALBUMIN 3.9 GM/DL (3.2-5.2); ALT/SGPT 14 U/L (12-78); BILIRUBIN,DIRECT < 0.1 MG/DL (0.0-0.2); BILIRUBIN,TOTAL 0.2 MG/DL (0.2-1.0); BLOOD UREA NITROGEN 4 MG/DL (7-18); CALCIUM LEVEL 8.8 MG/DL (8.5-10.1); CARBON DIOXIDE LEVEL 25 MEQ/L (21-32); CHLORIDE LEVEL 106 MEQ/L (98-107); CREATININE FOR GFR 0.57 MG/DL (0.55-1.30); GLOMERULAR FILTRATION RATE > 60.0 (>60); GLUCOSE, FASTING 73 MG/DL (70-100); HCG, SERUM QUANTITATIVE 32163 MIU/ML; LIPASE 162 U/L (73-393); POTASSIUM SERUM 4.1 MEQ/L (3.5-5.1); SODIUM LEVEL 139 MEQ/L (136-145); TOTAL PROTEIN 7.7 GM/DL (6.4-8.2)
--- NOTE | 2020-08-19 23:25 | REPVR ---
PROCEDURE INFORMATION: Exam: US First Trimester, Transabdominal Exam date and time: 08/19/2020 10:36 PM Age: 20 years old Clinical indication: complicated by abdominal or pelvic pain; Left lower quadrant; First trimester; Gestational age or lmp: 11w3d; ; Additional info: 11wks with llq pain TECHNIQUE: Imaging protocol: Real-time transabdominal obstetrical ultrasound of the maternal pelvis and a first trimester , less than 14 weeks 0 days, with image documentation. COMPARISON: 1ST TRIMESTER US 08/14/2020 11:30 PM FINDINGS: Gestation: An intrauterine gestational sac is identified and the fetus is variable in position at this stage of development. Fetus is estimated at 11 weeks 6 days utilizing crown-rump length. The heart rate is 170 bpm and regular. This is early in development and all parameters regarding the fetus cannot be assessed, therefore, a complete survey should be performed at 18-20 weeks gestation for a complete evaluation. There is no evidence of implantation bleed. Placenta: There is good decidual reaction. Placenta may be anterior but impossible to know with certainty at this stage of development. Amniotic fluid: There is an adequate amount of amniotic fluid. Right adnexa: The right ovary measures 2.8 cm in length by 2.6 cm in thickness and there is vascular flow of the right ovary. Left adnexa: The left ovary measures 2.7 cm in length by 1.9 cm in thickness and there is vascular flow of the left ovary. Intraperitoneal space: There is no evidence of free fluid. IMPRESSION: 1. Single fetus that is variable in position. Estimated at 11 weeks 6 days with a heart rate of 170 bpm. 2. This is very early in gestation and all parameters cannot be assessed regarding the fetus, a complete survey ultrasound should be performed at 18-20 weeks gestation to rule out any abnormality. Electronically signed by: Best Worthy On 08/19/2020 23:24:53 PM
== END 2020-08-20 00:45 | disposition home or self-care (01) ==
LOC: M ED 20:14
DX: O26.891 Other specified pregnancy related conditions, first trimester (principal); R10.32 Left lower quadrant pain; Z87.42 Personal history of other diseases of the female genital tract; O99.331 Smoking (tobacco) complicating pregnancy, first trimester; F17.210 Nicotine dependence, cigarettes, uncomplicated; O99.511 Diseases of the respiratory system complicating pregnancy, first trimester; J02.9 Acute pharyngitis, unspecified; R05 Cough; R09.89 Other specified symptoms and signs involving the circulatory and respiratory systems; Z3A.11 11 weeks gestation of pregnancy; Z91.013 Allergy to seafood

== ENCOUNTER 2020-09-12 22:18 | Emergency (ER) | payer OTHER ==
[~2020-09-12] VITALS: Ht 154.9 cm; Wt 53.2 kg
[2020-09-12] MEDS ORDERED: ACETAMINOPHEN TAB 650MG DOSE (2X325MG) PO ONE (23:30)
[2020-09-12] MEDS ORDERED: ACETAMINOPHEN 325 MG TAB PO ONE (23:30)
[2020-09-12] MEDS ORDERED: NS 1,000 ML IV ONE (23:30)
--- NOTE | 2020-09-12 23:47 | REPVR ---
PROCEDURE INFORMATION: Exam: US , Limited Exam date and time: 09/12/2020 11:38 PM Age: 20 years old Clinical indication: Other: Rlq pain; Gestational age or lmp: 14w 6d; ; Additional info: Right sided pelvic pain; 15 weeks preg TECHNIQUE: Imaging protocol: Real-time ultrasound of the maternal uterus with image documentation. Exam focused on the clinical indication. COMPARISON: 1ST TRIMESTER US 08/19/2020 10:19 PM FINDINGS: Gestation: Single intrauterine fetus. heart rate: heartbeat of 142 bpm. Placenta: Posterior placenta with previa. MATERNAL: Cervix: Closed cervix measuring 3.7 cm. IMPRESSION: 1. Single live intrauterine fetus. 2. Posterior placenta with previa. The cervix is closed measuring 3.7 cm. Electronically signed by: Missael Heller On 09/12/2020 23:47:09 PM
[2020-09-13 00:15] LABS: HEMATOCRIT 40.2 % (36.0-47.0); HEMOGLOBIN 13.1 g/dl (12.0-15.5); MEAN CORPUSCULAR HGB CONC 32.6 g/dl (32.0-36.5); PLATELET COUNT, AUTOMATED 271 10^3/uL (150-450); RED BLOOD COUNT 4.37 10^6/uL (4.00-5.40); WHITE BLOOD COUNT 10.6 10^3/uL (4.0-10.0)
[2020-09-13 00:31] LABS: ALBUMIN 3.3 GM/DL (3.2-5.2); ALT/SGPT 10 U/L (12-78); BILIRUBIN,DIRECT < 0.1 MG/DL (0.0-0.2); BILIRUBIN,TOTAL 0.2 MG/DL (0.2-1.0); BLOOD UREA NITROGEN 6 MG/DL (7-18); CALCIUM LEVEL 9.4 MG/DL (8.5-10.1); CARBON DIOXIDE LEVEL 26 MEQ/L (21-32); CHLORIDE LEVEL 110 MEQ/L (98-107); CREATININE FOR GFR 0.49 MG/DL (0.55-1.30); GLOMERULAR FILTRATION RATE > 60.0 (>60); GLUCOSE, FASTING 86 MG/DL (70-100); LIPASE 151 U/L (73-393); SODIUM LEVEL 141 MEQ/L (136-145); TOTAL PROTEIN 6.9 GM/DL (6.4-8.2)
[2020-09-13] MEDS ORDERED: FLAG500T PO (01:09)
[2020-09-13 01:10] LABS: CHLAMYDIA DNA AMPLIFICATION NEGATIVE (NEGATIVE); GC DNA AMPLIFICATION NEGATIVE (NEGATIVE)
[2020-09-13] MEDS ORDERED: metroNIDAZOLE (FLAGYL) 500MG TABLET PO ONE (01:15)
[2020-09-13 01:39] VITALS: BP 111/59
== END 2020-09-13 01:49 | disposition home or self-care (01) ==
LOC: M ED 22:18
DX: O20.0 Threatened abortion (principal); O23.592 Infection of other part of genital tract in pregnancy, second trimester; Z3A.15 15 weeks gestation of pregnancy; O99.332 Smoking (tobacco) complicating pregnancy, second trimester; F17.210 Nicotine dependence, cigarettes, uncomplicated; Z87.42 Personal history of other diseases of the female genital tract; Z91.013 Allergy to seafood

== ENCOUNTER 2020-10-08 17:18 | Emergency (ER) | payer OTHER ==
[~2020-10-08] VITALS: Ht 154.9 cm; Wt 55.2 kg
[~2020-10-08 17:18] MED LIST changes: +FLAG500T PO
[2020-10-08] MEDS ORDERED: NS 1,000 ML IV ONE (18:00)
[2020-10-08 18:19] LABS: BASO % 0.3 % (0.0-1.0); EOS # 0.3 10^3/uL (0.0-0.5); EOS % 2.9 % (0.0-3.0); LYMPH # 1.7 10^3/uL (1.5-5.0); MEAN CORPUSCULAR HEMOGLOBIN 29.4 pg (27.0-33.0); MEAN CORPUSCULAR HGB CONC 31.6 g/dl (32.0-36.5); MEAN CORPUSCULAR VOLUME 93.1 fl (80.0-96.0); MONO # 0.6 10^3/uL (0.0-0.8); MONO % 6.8 % (0.0-5.0); NEUTROPHILS # 6.3 10^3/uL (1.5-8.5); NEUTROPHILS % 70.6 % (36.0-66.0); PLATELET COUNT, AUTOMATED 242 10^3/uL (150-450); RED BLOOD COUNT 4.08 10^6/uL (4.00-5.40); WHITE BLOOD COUNT 8.9 10^3/uL (4.0-10.0)
--- NOTE | 2020-10-08 18:36 | REPVR ---
PROCEDURE INFORMATION: Exam: US , Limited Exam date and time: 10/08/2020 6:09 PM Age: 20 years old Clinical indication: Other: Decreased movement 18wks; ; Additional info: 18 weeks, decreaed movement, hip pains TECHNIQUE: Imaging protocol: Real-time ultrasound of the maternal uterus with image documentation. Exam focused on the clinical indication. COMPARISON: Obs. Limited, BERENICE US 09/12/2020 11:31 PM FINDINGS: Gestation: Intrauterine gestation. heart rate: heart rate 150 bpm. Presentation: Single fetus in cephalic presentation demonstrated. Placenta: Posterior placenta without placenta previa. Amniotic fluid: Normal amniotic fluid volume demonstrated. BERENICE 9.9 cm. MATERNAL: Cervix: Cervix measures 3.3 cm. No bulging membranes or funneling. IMPRESSION: Unremarkable limited scan in this 18 weeks gestation fetus based on prior evaluation. Electronically signed by: Mark Finley On 10/08/2020 18:35:52 PM
[2020-10-08 18:38] LABS: BLOOD UREA NITROGEN 3 MG/DL (7-18); CALCIUM LEVEL 8.5 MG/DL (8.5-10.1); CARBON DIOXIDE LEVEL 26 MEQ/L (21-32); CHLORIDE LEVEL 110 MEQ/L (98-107); CREATININE FOR GFR 0.48 MG/DL (0.55-1.30); GLOMERULAR FILTRATION RATE > 60.0 (>60); GLUCOSE, FASTING 90 MG/DL (70-100); POTASSIUM SERUM 3.9 MEQ/L (3.5-5.1); SODIUM LEVEL 141 MEQ/L (136-145)
[2020-10-08] MEDS ORDERED: KEFL500C17 PO (19:33)
[2020-10-08 19:44] VITALS: BP 109/61
== END 2020-10-08 19:47 | disposition home or self-care (01) ==
LOC: M ED 17:18
DX: O26.892 Other specified pregnancy related conditions, second trimester (principal); R10.2 Pelvic and perineal pain; R82.71 Bacteriuria; M25.551 Pain in right hip; M25.552 Pain in left hip; O99.332 Smoking (tobacco) complicating pregnancy, second trimester; F17.210 Nicotine dependence, cigarettes, uncomplicated; Z87.42 Personal history of other diseases of the female genital tract; Z91.013 Allergy to seafood; Z3A.18 18 weeks gestation of pregnancy

== ENCOUNTER → 2020-10-09 | Outpatient (CLI) | payer OTHER ==
[~2020-10-09] MED LIST changes: +KEFL500C17 PO
--- NOTE | 2020-10-09 13:19 | REP ---
INDICATION: ANATOMY,PLACENTA PREVIA. COMPARISON: Comparison sonography October 08, 2020.. TECHNIQUE: Transabdominal obstetric sonography. FINDINGS: Scanning through the gravid uterus demonstrates a viable single intrauterine gestation in cephalic lie. motion is observed and heart rate is recorded at 150 beats per minute. A posterior placenta is seen, grade 0, without evidence of placenta previa. Amniotic fluid is subjectively normal. Closed cervical length is measured at 3.2 to cm transabdominally. No extrauterine abnormality is observed. Amniotic fluid is subjectively normal. Four-chamber heart view demonstrates a echogenic focus in the left ventricle. Facial profile is is observed but nose and lips were less than optimally seen due to early gestational age and position. The following additional anatomic structures are identified today and felt to be unremarkable: cranium and intracranial anatomy, nuchal fold, left and right ventricular cardiac outflow tract view, diaphragm, left-sided stomach, abdominal wall cord insertion, right and left kidney, urinary bladder, spine, upper and lower extremities, three-vessel cord.. Biometry chart: BPD 4.0 cm, 18 weeks 1 day Head circumference 15.2 cm, 18 weeks 2 days Abdominal circumference 12.3 cm, 17 weeks 6 days Femur length 2.5 cm, 17 weeks 4 days Humeral length 2.4 cm, 17 weeks 2 days HC AC ratio normal 1.24 Cephalic index normal 0.72 Estimated weight 211 g, 0 lb 7 oz, less than 3rd percentile for 18 weeks 5 days IMPRESSION: Viable single intrauterine gestation at 17 weeks 6 days by today's composite sonographic criteria. SULMA by today's sonography March 13, 2021. No complication identified. There is an echogenic focus in the left ventricle. nose and lips are less than optimally seen. No evidence of placenta previa. <Electronically signed by Aden Calles > 10/09/20 [id number]
== END ==
LOC: M WHC 10:22
PROVIDERS: ATTEND Advanced Practice Midwife
DX: O44.02 Complete placenta previa NOS or without hemorrhage, second trimester (principal); Z3A.17 17 weeks gestation of pregnancy

== ENCOUNTER → 2020-11-04 | Outpatient (CLI) | payer OTHER | LOC: M WHC 13:45 | PROVIDERS: ATTEND Obstetrics & Gynecology | DX: Z34.92 Encounter for supervision of normal pregnancy, unspecified, second trimester (principal); Z3A.22 22 weeks gestation of pregnancy; Z53.9 Procedure and treatment not carried out, unspecified reason ==

== ENCOUNTER → 2020-11-11 | Outpatient (CLI) | payer OTHER ==
--- NOTE | 2020-11-17 18:00 | REP ---
INDICATION: F/U ANATOMY COMPARISON: 10/09/2020 TECHNIQUE: Transabdominal obstetrical ultrasound with color Doppler evaluation. FINDINGS: Examination demonstrates a single live intrauterine in cephalic presentation. motion is identified by technologist. Placenta is noted posterior and grade 2 without evidence for placenta previa or abruption. Amniotic fluid volume is normal. Cervix measures 3.0 cm in length and appears closed.. Gestational age by current measurements 22 weeks 0 days with SULMA 03/17/2021. FHR equals 156 beats per minute. Estimated weight 451 grams (15thpercentile). Anatomical assessment demonstrates normal structures including cranium, facial features, nose/lips, cardiac ventricular outflow tracts, diaphragm, stomach, kidneys/bladder, and three-vessel cord. Echogenic focus in the left cardiac ventricle again noted. IMPRESSION: Single live intrauterine in cephalic presentation. Prominent chordae tendineae again suggested. In conjunction with prior examination anatomical assessment is otherwise complete and normal. <Electronically signed by Bhavik Blevins > 11/17/20 [id number]
== END ==
LOC: M WHC 14:42
PROVIDERS: ATTEND Obstetrics & Gynecology
DX: Z36.2 Encounter for other antenatal screening follow-up (principal); Z3A.22 22 weeks gestation of pregnancy

== ENCOUNTER → 2020-12-01 | Outpatient (REF) | payer OTHER | LOC: M PLALAB 14:28 | PROVIDERS: ATTEND Obstetrics & Gynecology | DX: Z34.02 Encounter for supervision of normal first pregnancy, second trimester (principal) ==

== ENCOUNTER → 2020-12-02 | Outpatient (REF) | payer OTHER ==
[2020-12-02 13:55] LABS: HEMOGLOBIN 11.8 g/dl (12.0-15.5); MEAN CORPUSCULAR HGB CONC 32.8 g/dl (32.0-36.5); MEAN CORPUSCULAR VOLUME 94.5 fl (80.0-96.0); PLATELET COUNT, AUTOMATED 209 10^3/uL (150-450); RED BLOOD COUNT 3.81 10^6/uL (4.00-5.40); WHITE BLOOD COUNT 10.5 10^3/uL (4.0-10.0)
== END ==
LOC: M PLALAB 11:25
PROVIDERS: ATTEND Obstetrics & Gynecology
DX: Z34.02 Encounter for supervision of normal first pregnancy, second trimester (principal)

== ENCOUNTER → 2020-12-09 | Outpatient (CLI) | payer OTHER | LOC: M LAB 06:50 | PROVIDERS: ATTEND Obstetrics & Gynecology | DX: R73.09 Other abnormal glucose (principal) ==

== ENCOUNTER → 2021-01-13 | Outpatient (CLI) | payer OTHER ==
--- NOTE | 2021-01-13 18:09 | REP ---
INDICATION: F/U ANATOMY. COMPARISON: 10/09/2020 and 11/11/2020 TECHNIQUE: Multiple ultrasonographic images of the gravid uterus. FINDINGS: On 10/09/2020 the upper lip could not be optimally demonstrated. Additionally an echogenic focus was identified in the cardiac left ventricle. On 11/11/2020 the upper lip was optimally demonstrated and was unremarkable. An echogenic focus is again identified in the left ventricle. On the study today the echogenic focus is again identified in the left ventricle. This is nonspecific but is most commonly artifact from the chorda tendineae. If further evaluation of this finding is required, referral to a dedicated center is recommended. There is a single intrauterine gestation in the cephalic presentation. The placenta is posterior with grade 3 maturity there is no previa. The umbilical cord inserts centrally on the placenta. There is a three-vessel cord. heart rate is 135 beats per minute. Amniotic fluid index is 13.9 (normal is 8.5-24.3. The composite ultrasound gestational age is 30 weeks 5 days with an SULMA of 02/28/2021. weight is 1527 g/3 lb, 5 oz. This is less than the 3rd percentile for 32 weeks 3 days. The cervix measures 3.1 cm in length. IMPRESSION: Single intrauterine gestation with size and dates as discussed above. There is a persisting echogenic focus in the cardiac left ventricle as discussed above. <Electronically signed by Cody Portillo > 01/13/21 [id number]
== END ==
LOC: M WHC 13:56
PROVIDERS: ATTEND Obstetrics & Gynecology
DX: Z34.83 Encounter for supervision of other normal pregnancy, third trimester (principal); Z3A.30 30 weeks gestation of pregnancy

== ENCOUNTER → 2021-01-27 | Outpatient (CLI) | payer OTHER ==
--- NOTE | 2021-01-27 19:33 | REP ---
INDICATION: IUGR. COMPARISON: 01/13/2021. TECHNIQUE: Multiple sonographic images of the gravid uterus. FINDINGS: There is a single intrauterine gestation in a cephalic presentation. The placenta is posterior with grade 3 maturity. There is no previa. heart rate is 139 beats per minute. Amniotic fluid volume subjectively is normal. Amniotic fluid index is 12.4. Normal is 8.0-24.8. Biophysical profile: Breathing 2 Tone 2 Movement 2 AFB 2 Total 8/8. Umbilical artery Doppler ASSESSMENT: Umbilical artery 1: PSV 58.0 centimeters/second EDV 16.6 centimeters/second S/D 3.49 (1.71-3.64) RI 0.71 (0.47-0.73) Middle cerebral artery: PSV 58.0 centimeters/second EDV 8.2 centimeters/second S/D 7.07 RI 0.86 Med PSV 49.8 centimeters/second MoM 1.17 (less than 1.5). IMPRESSION: biophysical profile as above. The Doppler assessment of the umbilical artery and middle cerebral artery is within the normal range. <Electronically signed by Cody Portillo > 01/27/211929
== END ==
LOC: M RAD 11:18
PROVIDERS: ATTEND Advanced Practice Midwife
DX: O36.5930 Maternal care for other known or suspected poor fetal growth, third trimester, not applicable or unspecified (principal); Z3A.00 Weeks of gestation of pregnancy not specified

== ENCOUNTER → 2021-02-01 | Outpatient (CLI) | payer OTHER ==
--- NOTE | 2021-02-01 11:45 | REP ---
INDICATION: IUGR,GROWTH,BPP W/CORD DOPPLERS COMPARISON: 01/27/2021 TECHNIQUE: Transabdominal obstetrical ultrasound with color Doppler evaluation. FINDINGS: Examination demonstrates a single live intrauterine in cephalic presentation. motion is identified by technologist. Placenta is noted posterior and grade 3 without evidence for placenta previa or abruption. Amniotic fluid volume is normal. Cervix measures 3.0 cm in length and appears closed.. Gestational age by LMP 35 weeks 1 day with SULMA 03/07/2021. Gestational age by current measurements 32 weeks 0 days with SULMA 03/29/2021. FHR equals 163 beats per minute. BPD: 8.0 cm at 32 weeks 0 days HC: 30.2 cm at 33 weeks 4 days AC: 28.0 cm at 32 weeks 1 day FL: 6.1 cm at 31 weeks 4 days HL: 5.3 cm at 31 weeks 0 days HC/AC: 1.08 Estimated weight 1897 grams (less than 3rdpercentile). BERENICE: 14.7 cm (7.9-24.9) Biophysical profile score: 8/8 Umbilical artery 1 SD ratio: 1.98 (1.67-3.58) Umbilical artery 2 SD ratio: 2.22 IMPRESSION: Single live advanced gestation in cephalic presentation. Less than expected interval growth noted based on age by SULMA. Amniotic fluid index and biophysical profile score normal. <Electronically signed by Bhavik Blevins > 02/01/21 0602
== END ==
LOC: M WHC 10:43
PROVIDERS: ATTEND Advanced Practice Midwife
DX: O36.5930 Maternal care for other known or suspected poor fetal growth, third trimester, not applicable or unspecified (principal); Z3A.32 32 weeks gestation of pregnancy

== ENCOUNTER 2021-02-03 05:45 | Emergency (ER) | payer OTHER ==
[~2021-02-03] VITALS: Ht 154.9 cm; Wt 64.4 kg
[2021-02-03 05:46] VITALS: BP 136/80
== END 2021-02-03 06:10 | disposition left against medical advice (07) ==
LOC: M ED 05:45
DX: Z53.21 Procedure and treatment not carried out due to patient leaving prior to being seen by health care provider (principal)

== ENCOUNTER → 2021-02-03 | Outpatient (REF) | payer OTHER | LOC: M SFHCWAGY 16:57 | PROVIDERS: ATTEND Advanced Practice Midwife | DX: Z36.89 Encounter for other specified antenatal screening (principal); Z3A.35 35 weeks gestation of pregnancy ==

== ENCOUNTER → 2021-02-10 | Outpatient (CLI) | payer OTHER ==
--- NOTE | 2021-02-10 15:11 | REP ---
INDICATION: GROWTH,BPP/CORD DOPPLERS. COMPARISON: 02/01/2021. TECHNIQUE: Real-time sonographic evaluation of the gravid uterus performed. FINDINGS: Estimated gestational age is36 weeks 3 days, EDC 03/07/2021. Presentation: Cephalic Placenta posterior, grade 3, without evidence of placenta previa. heart rate is recorded at 150 beats per minute. Amniotic fluid is subjectively normal. BERENICE 16.7, normal range 7.6-24.7. Biophysical profile score 8/8. SD ratio umbilical artery 2.51, normal 1.62-3.48. RI 0.60, normal 0.44-0.71. SD ratio in middle cerebral artery 3.63, RI 0.72. IMPRESSION: Viable single intrauterine gestation as above. <Electronically signed by Cody Bermeo > 02/10/21 [id number]
== END ==
LOC: M WHC 13:22
PROVIDERS: ATTEND Advanced Practice Midwife
DX: O36.5930 Maternal care for other known or suspected poor fetal growth, third trimester, not applicable or unspecified (principal)

== ENCOUNTER 2021-02-14 07:29 | Inpatient (IN) | payer OTHER ==
[~2021-02-14] VITALS: Ht 152.4 cm; Wt 65.5 kg
[2021-02-14] VITALS (9 sets, daily range): BP systolic 84–148; BP diastolic 49–96
[2021-02-14] MEDS ORDERED: LIDOCAINE 1% MDV 20ML VIAL INFIL PRN (08:35)
[2021-02-14] MEDS ORDERED: OXYTOCIN DRIP 30 UNITS in IV 1 EA IV PRN (08:35)
[2021-02-14] MEDS ORDERED: METHYLERGONOVINE MALEATE 0.2 MG/ML VIAL (J2210) IM PRN (08:35)
[2021-02-14] MEDS: miSOPROStol 50MCG 1/2 TABLET PO SCH ×4 (09:02→23:03)
[2021-02-14 09:38] LABS: HEMATOCRIT 37.8 % (36.0-47.0); HEMOGLOBIN 12.1 g/dl (12.0-15.5); MEAN CORPUSCULAR HEMOGLOBIN 29.7 pg (27.0-33.0); MEAN CORPUSCULAR VOLUME 92.6 fl (80.0-96.0); PLATELET COUNT, AUTOMATED 233 10^3/uL (150-450); RED BLOOD COUNT 4.08 10^6/uL (4.00-5.40)
--- NOTE | 2021-02-14 09:58 | HPE ---
HISTORY AND PHYSICAL DATE OF ADMISSION: 02/14/2021 HISTORY OF PRESENT ILLNESS: Day is a 20-year-old 1, para 0 at 37 weeks gestation with EDC of 03/07/2021 based on 1st trimester ultrasound. She presents to labor and delivery today for induction of labor due to intrauterine growth restriction less than 3rd percentile per consult with Dr. Cassy Odonnell. She denies vaginal bleeding, leakage of fluid and painful contractions and she does report that the fetus has been active. care was initiated at [facility] in the 1st trimester. course was complicated by smoking throughout her and intrauterine growth restriction at 32 weeks, less than 3rd percentile. She did undergo antepartal testing that was reassuring and her most recent growth ultrasound on 02/01/2021 demonstrated fetus in cephalic presentation, BERENICE 14.7, EFW 1897 gm, less than 3rd percentile with BPP of 8/8. OBSTETRIC HISTORY: Primigravida. OBSTETRIC LABS: A positive, antibody screen negative. Syphilis negative. Gonorrhea and Chlamydia negative. Hepatitis B negative. Hep-C negative HIV negative. Rubella immune. Urine culture no growth. Gestational diabetic screening elevated at 149. Three hour glucose tolerance test 77, 173, 165, 86. GBS negative. MEDICAL HISTORY: Asthma. SURGERY HISTORY: Right ovarian cystectomy, tonsillectomy and wisdom tooth extraction. FAMILY HISTORY: Thyroid disease, hypertension. SOCIAL HISTORY: The patient is , her is at bedside and supportive. She does report smoking 5 or less cigarettes per day. She denies alcohol and drug use. She denies any history of sexually transmitted infections. She denies history of abuse, physical, sexual and emotional. ALLERGIES: Seafood, shrimp. CURRENT MEDICATIONS: vitamin. PHYSICAL EXAMINATION: VITAL SIGNS: Blood pressure 129/73, pulse 114. heart rate is 140 with moderate variability, positive accelerations, negative decelerations, occasional contraction. STERILE VAGINAL EXAM: 1 cm 75% effaced, -3 station, posterior and soft. ABDOMEN: Gravid, cephalic presentation. Estimated weight 2100 gm today. ASSESSMENT: Intrauterine at 37 weeks, heart rate category 1. Intrauterine growth restriction less than 3rd percentile. PLAN: 1. Admit the patient to labor and delivery. 2. Routine laboratories. 3. Saline lock at this time. 4. Out of bed ad belen. 5. Regular diet. 6. I plan to start Misoprostol 50 mcg PO every 4 hours for cervical ripening. 7. The patient is considering IV pain medications and/or epidural for her labor coping when she is in active labor. I did review risks, benefits and alternatives to induction of labor. All of the patient's and her 's questions have been answered. She has been verbally consented for emergency surgery and blood products if they are necessary. I do anticipate cervical ripening.
[2021-02-14] MEDS ORDERED: BUTORPHANOL 2 MG/ML INJ (J0595) IV ONE (22:45)
[2021-02-14] MEDS ORDERED: PROMETHAZINE INJ 25 MG/ML VIAL (J2550) IV PRN (22:45)
[2021-02-15] VITALS (30 sets, daily range): BP systolic 98–172; BP diastolic 55–86
[2021-02-15] MEDS: miSOPROStol 50MCG 1/2 TABLET PO SCH (03:00)
[2021-02-15] MEDS ORDERED: PROMETHAZINE INJ 25 MG/ML VIAL (J2550) IV ONE (15:10)
[2021-02-15] MEDS ORDERED: OXYTOCIN DRIP 30 UNITS in IV 1 EA IV SCH (15:10)
[2021-02-15] MEDS ORDERED: LACTATED RINGER'S 1000 ML IV ONE (15:10)
[2021-02-15] MEDS ORDERED: BUTORPHANOL 2 MG/ML INJ (J0595) IV ONE (15:10)
[2021-02-15] MEDS ORDERED: LR 1,000 ML IV SCH (15:10)
--- NOTE | 2021-02-15 15:32 | IPNPDOC ---
Obstetrical Progress Note Date of Service Feb 15, 2021 Subjective Patient reports she is feeling some of her contractions and they are tolerable. Objective Vital Signs Date Time Temp Pulse Resp B/P (MAP) Pulse Ox O2 Delivery O2 Flow Rate FiO2 02/15/21 15:09 73 20 132/69 (90) 02/15/21 14:33 99.2 Assessment Heart Rate (FHR): 130 Variability: Moderate Accelerations: Positive Decelerations: None Heart Rate Tracing: Category I Tocometer Contractions: Yes Frequency: irregular Sterile Vaginal Examination Dilation: 1cm Effacement (%): 90% Station: 0 Postion/Presentation: Cephalic presentation Assessment and Plan Age: 20 Weeks & Days 37.1 Status: Reassuring Group B Streptococcus: Negative Anticipate: Vaginal Delivery Additional Comments Mann bulb inserted with 50 cc of NS. Patient tolerated well. IV Pitocin to be started per order. IV pain medication ordered per patient's request. AMADEO BHAT CNM Feb 15, 2021 15:32
[2021-02-15] MEDS ORDERED: ePHEDrine SULFATE 25 MG/5 ML(5MG/ML) SYRINGE IV PRN (18:00)
[2021-02-15] MEDS ORDERED: diphenhydrAMINE 50MG/ML VIAL (J1200) IV PRN (18:00)
[2021-02-15] MEDS ORDERED: REFRIGERATOR IV KEYS XX PRN (18:00)
[2021-02-15] MEDS ORDERED: LACTATED RINGER'S 1000 ML IV PRN (18:00)
[2021-02-15] MEDS ORDERED: EPIDURAL COMMENT XX SCH (18:00)
[2021-02-15] MEDS ORDERED: NALOXONE INJ 0.4MG/1ML VIAL (J2310 PER 1MG) IV PRN (18:00)
[2021-02-15] MEDS ORDERED: EPIDURAL/PCA KEYS XX PRN (18:00)
[2021-02-15] MEDS ORDERED: ONDANSETRON 4MG/2ML VIAL IV PRN (18:00)
[2021-02-15] MEDS ORDERED: FENTANYL/ROPIVACAINE/NACL BAG 100 ML EPIDURAL SCH (18:00)
[2021-02-15] MEDS ORDERED: FENTANYL 2MCG/ML ROPIVACAINE 0.2% IN 0.9% NACL 100ML IVBAG As Ordered ONE (18:05)
[2021-02-15] MEDS ORDERED: DIBUCAINE 1% OINTMENT 30GM TOP PRN (21:25)
[2021-02-15] MEDS ORDERED: MEASLES,MUMPS,RUBELLA VACCINE INJ (MMR-II) (90707) SC SCH (21:25)
[2021-02-15] MEDS ORDERED: ACETAMINOPHEN 500 MG TAB PO PRN (21:25)
[2021-02-15] MEDS ORDERED: METHYLERGONOVINE MALEATE 0.2 MG TAB PO PRN (21:25)
[2021-02-15] MEDS ORDERED: RHOGAM 300 MCG (1500 IU) INJ (J2790) IM SCH (21:25)
[2021-02-15] MEDS ORDERED: ANUSOL HC CREAM 30GM TOP PRN (21:25)
[2021-02-15] MEDS ORDERED: ACETAMINOPHEN TAB 650MG DOSE (2X325MG) PO PRN (21:25)
[2021-02-15] MEDS ORDERED: IBUPROFEN 600MG TAB PO PRN (21:25)
[2021-02-15] MEDS ORDERED: DOCUSATE SODIUM 100MG CAPSULE PO PRN (21:25)
--- NOTE | 2021-02-15 21:36 | DNPDOC ---
[facility] Delivery Note Delivery Note DATE OF DELIVERY: 02/15/21 at 2030 PREDELIVERY DIAGNOSIS: 37-0/7 weeks' gestation and induction of labor for IUGR- growth <3%. POST DELIVERY DIAGNOSIS: Delivered. PROCEDURE: Spontaneous vaginal delivery. ASSIGNMENT CLERK: Amadeo Blankenship CNM, DANY ANESTHESIA: epidural ESTIMATED BLOOD LOSS: 300 mL. FINDINGS: 5 pounds 2 ounces, 2330 grams; female , Score 9/9, nuchal cord times x1 tight and around body, small for gestational age. DELIVERY SUMMARY: Day is a 20-year-old female who is now a who presented to L&D for an induction of labor due to IUGR with growth <3%. She received 5 doses of Cytotec, a phan bulb and IV Pitocin for her induction. She requested an epidural for pain management. Her phan bulb fell out 2.5 hours after being placed. She spontaneously ruptured clear fluid at 1945 and progressed to fully dilated at 2016. she pushed to a living female in the VICKY position with restitution to ROT. A nuchal cord was noted around the neck and not able to be reduced. The anterior shoulder delivered spontaneously and the corpus immediately followed. There was a noted cord around the body. The baby was placed skin to skin active and crying with stimulation. The cord was clamped x 2 after pulsation ceased and cut by the FOB. A 3-vessel cord was noted. The placenta delivered spontaneously and intact at 2034. Uterine hemostasis was achieved via rapid infusion of IV Pitocin and fundal massage. The vagina, perineum, and cervix was inspected and found to have a first degree perineal laceration with bilateral labial lacerations that were repaired with a 3.[address]-1. Mom plans to breastfeed. They are naming her "Rakel." Both mom and baby are in stable condition. All counts of instruments and sponges are correct. AMADEO BLANKENSHIP CNM Feb 15, 2021 21:36
[2021-02-16] MEDS: IBUPROFEN 800 MG TAB PO PRN ×3 (00:50→22:33)
[2021-02-16 06:00] VITALS: BP 118/59
[2021-02-16] MEDS: PRENATAL VITAMINS CHEWABLE TABLET PO SCH (09:09)
--- NOTE | 2021-02-16 09:28 | IPNPDOC ---
Progress Note Date of Service: Feb 16, 2021 Day#: 1 Progress Note SUBJECT: Day is a 20-year-old female who presented to L&D for an IOL related to IUGR. She had a live female that weighed 5 lbs 2 oz. She has been ambulating, voiding spontaneously without issue and tolerating regular diet. Breast feeding without issue. OBJECTIVE: VITAL SIGNS: Within normal limits, afebrile. Alert and oriented times three. Breath sounds clear to auscultation. Abdomen: Fundus firm at U-2. Soft, NTTP. Minimal lochia. ASSESSMENT: Day 1 PLAN: 1. continue supportive nursing care. 2. Patient may shower. 3. Anticipate discharge to home tomorrow. VS, I&O, 24H, Fishbone Vital Signs/I&O Vital Signs Date Time Temp Pulse Resp B/P (MAP) Pulse Ox O2 Delivery O2 Flow Rate FiO2 02/16/21 06:00 98.3 98 16 118/59 (78) 96 Room Air I&O- Last 24 Hours up to 6 AM 02/16/21 06:00 Intake Total 2614 ml Output Total 725 ml Balance 1889 ml AMADEO BHAT CNM Feb 16, 2021 09:28
[2021-02-16 17:52] VITALS: BP 119/69
[2021-02-17 06:00] VITALS: BP 114/73
[2021-02-17] MEDS: PRENATAL VITAMINS CHEWABLE TABLET PO SCH (08:19)
--- NOTE | 2021-02-17 08:42 | IPNPDOC ---
Progress Note Date of Service: Feb 17, 2021 Day#: 2 Progress Note SUBJECT: Status post . She has been ambulating, voiding spontaneously without issue and tolerating regular diet. Lochia decreasing/minimal. Pain is well-controlled. Denies headache, visual changes, right upper quadrant pain, shortness breath or chest pain. OBJECTIVE: VITAL SIGNS: Within normal limits, afebrile. Alert and oriented times three. Abdomen: Fundus firm at U-2. Soft, NTTP. ASSESSMENT: Status post uncomplicated spontaneous vaginal delivery. Vitals within normal limits, afebrile, hemodynamically stable with no evidence of infection. PLAN: Discharge to home today. Tylenol and Motrin for pain. Routine instructions/precautions reviewed. Routine PP visit in 6 weeks in clinic. VS, I&O, 24H, Fishbone Vital Signs/I&O Vital Signs Date Time Temp Pulse Resp B/P (MAP) Pulse Ox O2 Delivery O2 Flow Rate FiO2 02/17/21 06:00 98.3 88 17 114/73 (87) 98 Room Air RENETTA GUERRERO DO Feb 17, 2021 08:42
== END 2021-02-17 19:00 | disposition home or self-care (01) | DRG 560 ==
LOC: M LDI 07:29 → M OBS 02-15 23:07
PROVIDERS: ADMIT Obstetrics & Gynecology; ATTEND Obstetrics & Gynecology
PROC: 3E033VJ Introduction of Other Hormone into Peripheral Vein, Percutaneous Approach (ICD-10-PCS; 2021-02-14)
PROC: 10E0XZZ Delivery of Products of Conception, External Approach (ICD-10-PCS; principal; 2021-02-15)
PROC: 0HQ9XZZ Repair Perineum Skin, External Approach (ICD-10-PCS; 2021-02-15)
DX: O36.5990 Maternal care for other known or suspected poor fetal growth, unspecified trimester, not applicable or unspecified (principal); O69.1XX0 Labor and delivery complicated by cord around neck, with compression, not applicable or unspecified; Z37.0 Single live birth; Z3A.37 37 weeks gestation of pregnancy; O69.2XX0 Labor and delivery complicated by other cord entanglement, with compression, not applicable or unspecified; O70.0 First degree perineal laceration during delivery

== ENCOUNTER 2021-03-01 14:30 | Emergency (ER) | payer OTHER ==
[~2021-03-01] VITALS: Ht 152.4 cm; Wt 59.7 kg
[2021-03-01] MEDS ORDERED: AUGM875T28 PO (16:32)
[2021-03-01] MEDS ORDERED: VENTAER INH (16:32)
[2021-03-01] MEDS ORDERED: AFRISPR3 (16:32)
[2021-03-01 17:00] VITALS: BP 126/76
== END 2021-03-01 17:03 | disposition home or self-care (01) ==
LOC: M ED 14:30
DX: J06.9 Acute upper respiratory infection, unspecified (principal); J20.9 Acute bronchitis, unspecified; J45.909 Unspecified asthma, uncomplicated; Z91.013 Allergy to seafood

== ENCOUNTER 2021-04-29 23:19 | Emergency (ER) | payer OTHER ==
[~2021-04-29] VITALS: Ht 152.4 cm; Wt 58.0 kg
[~2021-04-29 23:19] MED LIST changes: +AFRISPR3; +AUGM875T28 PO
[2021-04-30 01:39] LABS: BASO # 0.1 10^3/uL (0.0-0.2); BASO % 0.7 % (0.0-1.0); EOS # 0.4 10^3/uL (0.0-0.5); EOS % 4.8 % (0.0-3.0); HEMATOCRIT 40.8 % (36.0-47.0); HEMOGLOBIN 12.9 g/dl (12.0-15.5); LYMPH % 33.1 % (24.0-44.0); MEAN CORPUSCULAR HEMOGLOBIN 28.7 pg (27.0-33.0); MEAN CORPUSCULAR HGB CONC 31.6 g/dl (32.0-36.5); MEAN CORPUSCULAR VOLUME 90.7 fl (80.0-96.0); MONO # 0.7 10^3/uL (0.0-0.8); NEUTROPHILS # 4.8 10^3/uL (1.5-8.5); PLATELET COUNT, AUTOMATED 270 10^3/uL (150-450)
[2021-04-30 02:07] LABS: ALBUMIN 3.9 GM/DL (3.2-5.2); ALT/SGPT 20 U/L (12-78); BILIRUBIN,DIRECT < 0.1 MG/DL (0.0-0.2); BILIRUBIN,TOTAL 0.2 MG/DL (0.2-1.0); BLOOD UREA NITROGEN 6 MG/DL (7-18); CALCIUM LEVEL 8.6 MG/DL (8.5-10.1); CARBON DIOXIDE LEVEL 28 MEQ/L (21-32); CHLORIDE LEVEL 108 MEQ/L (98-107); GLOMERULAR FILTRATION RATE > 60.0 (>60); GLUCOSE, FASTING 92 MG/DL (70-100); LIPASE 196 U/L (73-393); POTASSIUM SERUM 3.8 MEQ/L (3.5-5.1); SODIUM LEVEL 140 MEQ/L (136-145)
[2021-04-30 02:11] LABS: HCG, SERUM QUALITATIVE NEGATIVE (NEGATIVE)
[2021-04-30] MEDS ORDERED: NS 1,000 ML IV ONE (02:45)
[2021-04-30] MEDS ORDERED: KETOROLAC 30 MG/ML 1ML VIAL IV ONE (02:45)
[2021-04-30] MEDS ORDERED: ONDANSETRON 4MG/2ML VIAL IV ONE (02:45)
[2021-04-30] MEDS ORDERED: ISOVUE-370 76% 100ML VIAL As Ordered ONE (03:21)
--- NOTE | 2021-04-30 05:20 | REPVR ---
PROCEDURE INFORMATION: Exam: CT Abdomen And Pelvis With Contrast Exam date and time: 04/30/2021 3:16 AM Age: 21 years old Clinical indication: Abdominal pain; Localized; Lower; Additional info: Llq >rlq pain TECHNIQUE: Imaging protocol: Computed tomography of the abdomen and pelvis with contrast. Radiation optimization: All CT scans at this facility use at least one of these dose optimization techniques: automated exposure control; mA and/or kV adjustment per patient size (includes targeted exams where dose is matched to clinical indication); or iterative reconstruction. Contrast material: ISO; Contrast volume: 100 ml; Contrast route: INTRAVENOUS (IV); COMPARISON: CT ABD/PEL W/IV CONTRAST ONLY 04/28/2020 4:48 AM FINDINGS: Lungs: Visualized lung bases are clear. Liver: Liver is enlarged with diffuse fatty infiltration. Gallbladder and bile ducts: Normal. No calcified stones. No ductal dilation. Pancreas: Normal. No ductal dilation. Spleen: Normal. No splenomegaly. Adrenal glands: Normal. No mass. Kidneys and ureters: Normal. No hydronephrosis. Stomach and bowel: Unremarkable. No obstruction. No mucosal thickening. Appendix: Normal appendix. Intraperitoneal space: Trace free fluid in the pelvis likely physiologic. Vasculature: Unremarkable. No abdominal aortic aneurysm. Lymph nodes: Unremarkable. No enlarged lymph nodes. Urinary bladder: Unremarkable as visualized. Reproductive: Prominence of the uterus and cervix with heterogeneous enhancement likely related to menstrual cycle. Dominant follicle in the left ovary with irregular margins likely ruptured measuring 8.9 mm. Right ovary is unremarkable. Bones/joints: Unremarkable. No acute fracture. Soft tissues: Unremarkable. IMPRESSION: Enlarged fatty liver. Normal appendix. Prominence of the uterus and cervix with heterogeneous enhancement likely related to menstrual cycle. Dominant follicle in the left ovary with irregular margins likely ruptured measuring 8.9 mm. Right ovary is unremarkable. Trace free fluid in the pelvis; physiologic. Electronically signed by: Mckenna Mcfarlane On 04/30/2021 05:19:27 AM
[2021-04-30] MEDS ORDERED: KETO10TAB PO (05:42)
[2021-04-30] MEDS ORDERED: ONDA4TAB6 PO (05:42)
[2021-04-30 05:46] VITALS: BP 115/56
== END 2021-04-30 05:59 | disposition home or self-care (01) ==
LOC: M ED 23:19
DX: N83.291 Other ovarian cyst, right side (principal); J45.909 Unspecified asthma, uncomplicated; K76.0 Fatty (change of) liver, not elsewhere classified; R16.0 Hepatomegaly, not elsewhere classified; N83.02 Follicular cyst of left ovary; Z91.013 Allergy to seafood
CPT/HCPCS: 36415; 74177; 80048; 80076; 81001; 83690; 84703; 85025; 96361; 96374; 96375; 99285; J1885; J2405; Q9967

== ENCOUNTER 2021-06-21 12:44 | Emergency (ER) | payer OTHER ==
[~2021-06-21] VITALS: Ht 154.9 cm; Wt 56.1 kg
[2021-06-21 16:18] VITALS: BP 113/70
== END 2021-06-21 16:38 | disposition home or self-care (01) ==
LOC: M ED 12:44
DX: J06.9 Acute upper respiratory infection, unspecified (principal); B34.9 Viral infection, unspecified; R05 Cough; Z20.828 Contact with and (suspected) exposure to other viral communicable diseases

== ENCOUNTER 2021-06-23 03:08 | Emergency (ER) | payer OTHER ==
[~2021-06-23] VITALS: Ht 154.9 cm; Wt 55.9 kg
[2021-06-23 03:08] VITALS: BP 116/59
== END 2021-06-23 06:10 | disposition left against medical advice (07) ==
LOC: M ED 03:08
DX: Z53.21 Procedure and treatment not carried out due to patient leaving prior to being seen by health care provider (principal)

== ENCOUNTER 2022-04-08 15:53 | Emergency (ER) | payer OTHER ==
[~2022-04-08] VITALS: Ht 152.4 cm; Wt 49.5 kg
[2022-04-08 16:46] LABS: BASO % 0.3 % (0.0-1.0); EOS # 0.1 10^3/uL (0.0-0.5); EOS % 1.9 % (0.0-3.0); HEMATOCRIT 37.9 % (36.0-47.0); HEMOGLOBIN 12.7 g/dl (12.0-15.5); LYMPH # 1.5 10^3/uL (1.5-5.0); LYMPH % 20.3 % (24.0-44.0); MEAN CORPUSCULAR HEMOGLOBIN 30.2 pg (27.0-33.0); MEAN CORPUSCULAR HGB CONC 33.5 g/dl (32.0-36.5); MEAN CORPUSCULAR VOLUME 90.2 fl (80.0-96.0); MONO # 0.5 10^3/uL (0.0-0.8); MONO % 6.2 % (2.0-8.0); NEUTROPHILS # 5.3 10^3/uL (1.5-8.5); NEUTROPHILS % 71.2 % (36.0-66.0); PLATELET COUNT, AUTOMATED 289 10^3/uL (150-450); WHITE BLOOD COUNT 7.4 10^3/uL (4.0-10.0)
[2022-04-08 21:49] VITALS: BP 103/70
== END 2022-04-08 22:24 | disposition home or self-care (01) ==
LOC: M ED 15:53
DX: O46.91 Antepartum hemorrhage, unspecified, first trimester (principal); Z3A.09 9 weeks gestation of pregnancy; Z91.013 Allergy to seafood

== ENCOUNTER → 2022-04-11 | Outpatient (CLI) | payer OTHER | LOC: M WHC 10:04 | PROVIDERS: ATTEND Obstetrics & Gynecology | DX: O41.8X10 Other specified disorders of amniotic fluid and membranes, first trimester, not applicable or unspecified (principal); Z3A.00 Weeks of gestation of pregnancy not specified ==

== ENCOUNTER → 2022-04-12 | Outpatient (CLI) | payer OTHER ==
[2022-04-12 18:20] LABS: BASO % 0.6 % (0.0-1.0); EOS # 0.1 10^3/uL (0.0-0.5); EOS % 1.8 % (0.0-3.0); HEMATOCRIT 39.2 % (36.0-47.0); HEMOGLOBIN 12.7 g/dl (12.0-15.5); LYMPH # 1.6 10^3/uL (1.5-5.0); LYMPH % 23.7 % (24.0-44.0); MEAN CORPUSCULAR HEMOGLOBIN 29.2 pg (27.0-33.0); MEAN CORPUSCULAR HGB CONC 32.4 g/dl (32.0-36.5); MEAN CORPUSCULAR VOLUME 90.1 fl (80.0-96.0); MONO # 0.4 10^3/uL (0.0-0.8); MONO % 6.5 % (2.0-8.0); NEUTROPHILS # 4.4 10^3/uL (1.5-8.5); NEUTROPHILS % 66.9 % (36.0-66.0); PLATELET COUNT, AUTOMATED 303 10^3/uL (150-450); RED BLOOD COUNT 4.35 10^6/uL (4.00-5.40); WHITE BLOOD COUNT 6.6 10^3/uL (4.0-10.0)
[2022-04-12 19:33] LABS: HEPATITIS C VIRUS ABY INDEX 0.2 INDEX (<0.8); HIV 1&2 SCREEN CENTAUR NEGATIVE (NEGATIVE)
[2022-04-12 19:46] LABS: GC DNA AMPLIFICATION NEGATIVE (NEGATIVE)
== END ==
LOC: M PLALAB 13:07
PROVIDERS: ATTEND Specialist
DX: Z34.81 Encounter for supervision of other normal pregnancy, first trimester (principal)

== ENCOUNTER → 2022-05-10 | Outpatient (CLI) | payer OTHER | LOC: M WHC 10:58 | PROVIDERS: ATTEND Advanced Practice Midwife | DX: Z34.92 Encounter for supervision of normal pregnancy, unspecified, second trimester (principal) ==

== ENCOUNTER → 2022-06-13 | Outpatient (CLI) | payer OTHER | LOC: M WHC 14:42 | PROVIDERS: ATTEND Advanced Practice Midwife | DX: Z34.82 Encounter for supervision of other normal pregnancy, second trimester (principal) ==

== ENCOUNTER → 2022-06-28 | Outpatient (CLI) | payer OTHER | LOC: M WHC 14:43 | PROVIDERS: ATTEND Obstetrics & Gynecology | DX: Z36.2 Encounter for other antenatal screening follow-up (principal); Z3A.21 21 weeks gestation of pregnancy ==

== ENCOUNTER → 2022-08-24 | Outpatient (CLI) | payer OTHER | LOC: M LAB 10:13 | PROVIDERS: ATTEND Obstetrics & Gynecology | DX: O99.810 Abnormal glucose complicating pregnancy (principal); Z3A.00 Weeks of gestation of pregnancy not specified ==

== ENCOUNTER → 2022-08-29 | Outpatient (CLI) | payer OTHER | LOC: M WHC 09:10 | PROVIDERS: ATTEND Obstetrics & Gynecology | DX: O36.5930 Maternal care for other known or suspected poor fetal growth, third trimester, not applicable or unspecified (principal); Z3A.30 30 weeks gestation of pregnancy ==

== ENCOUNTER → 2022-10-06 | Outpatient (CLI) | payer OTHER | LOC: M WHC 08:02 | PROVIDERS: ATTEND Advanced Practice Midwife | DX: Z87.59 Personal history of other complications of pregnancy, childbirth and the puerperium (principal); Z3A.36 36 weeks gestation of pregnancy ==

== ENCOUNTER → 2022-10-06 | Outpatient (REF) | payer OTHER | LOC: M PLALAB 13:54 | PROVIDERS: ATTEND Obstetrics & Gynecology | DX: Z36.85 Encounter for antenatal screening for Streptococcus B (principal); Z3A.36 36 weeks gestation of pregnancy ==

== ENCOUNTER 2022-10-27 23:41 | Inpatient (IN) | payer OTHER ==
[~2022-10-27] VITALS: Ht 154.9 cm; Wt 64.5 kg
[2022-10-28] VITALS (44 sets, daily range): BP systolic 114–153; BP diastolic 57–89
[2022-10-28] MEDS ORDERED: OXYTOCIN DRIP 30 UNITS in IV 1 EA IV PRN (02:50)
[2022-10-28] MEDS ORDERED: OXYTOCIN DRIP 30 UNITS in IV 1 EA IV SCH (02:55)
[2022-10-28 04:12] LABS: BASO % 0.2 % (0.0-1.0); EOS # 0.1 10^3/uL (0.0-0.5); EOS % 1.1 % (0.0-3.0); HEMATOCRIT 33.7 % (36.0-47.0); HEMOGLOBIN 10.5 g/dl (12.0-15.5); LYMPH # 1.5 10^3/uL (1.5-5.0); LYMPH % 17.2 % (24.0-44.0); MEAN CORPUSCULAR HEMOGLOBIN 25.3 pg (27.0-33.0); MEAN CORPUSCULAR HGB CONC 31.2 g/dl (32.0-36.5); MEAN CORPUSCULAR VOLUME 81.2 fl (80.0-96.0); MONO # 0.6 10^3/uL (0.0-0.8); MONO % 6.2 % (2.0-8.0); NEUTROPHILS # 6.7 10^3/uL (1.5-8.5); PLATELET COUNT, AUTOMATED 276 10^3/uL (150-450); RED BLOOD COUNT 4.15 10^6/uL (4.00-5.40); WHITE BLOOD COUNT 8.9 10^3/uL (4.0-10.0)
[2022-10-28] MEDS: LR 1,000 ML IV SCH ×2 (09:16→16:02)
[2022-10-28] MEDS ORDERED: CARBOPROST TROMETHAMINE 250 MCG/ML AMP IM PRN (16:35)
[2022-10-28] MEDS ORDERED: METHYLERGONOVINE MALEATE 0.2 MG/ML VIAL (J2210) IM PRN (16:35)
[2022-10-28] MEDS ORDERED: TRANEXAMIC ACID INJection 1,000 MG in NS 100 ML IV PRN (16:35)
[2022-10-28] MEDS ORDERED: LIDOCAINE 1% MDV 20ML VIAL INFIL PRN (16:35)
[2022-10-28] MEDS ORDERED: diphenhydrAMINE 50MG/ML VIAL IV PRN (16:40)
[2022-10-28] MEDS ORDERED: LR 500 ML IV PRN (16:40)
[2022-10-28] MEDS ORDERED: NALOXONE INJ 0.4MG/1ML VIAL IV PRN (16:40)
[2022-10-28] MEDS ORDERED: EPIDURAL/PCA KEYS XX PRN (16:40)
[2022-10-28] MEDS ORDERED: FENTANYL 2MCG/ML ROPIVACAINE 0.2% IN 0.9% NACL 100ML IVBAG As Ordered ONE (16:40)
[2022-10-28] MEDS ORDERED: ePHEDrine SULFATE 25 MG/5 ML(5MG/ML) SYRINGE IVP PRN (16:40)
[2022-10-28] MEDS ORDERED: FENTANYL/ROPIVACAINE/NACL BAG 100 ML EPIDURAL SCH (16:40)
[2022-10-28] MEDS ORDERED: ONDANSETRON 4MG 2ML VIAL IV PRN (16:40)
[2022-10-29] VITALS (8 sets, daily range): BP systolic 109–135; BP diastolic 60–85
[2022-10-29] MEDS ORDERED: DOCUSATE SODIUM 100MG CAPSULE PO PRN (00:50)
[2022-10-29] MEDS ORDERED: METHYLERGONOVINE MALEATE 0.2 MG TAB PO PRN (00:50)
[2022-10-29] MEDS ORDERED: DIBUCAINE 1% OINTMENT 30GM TOP PRN (00:50)
[2022-10-29] MEDS ORDERED: RHOGAM 300MCG (1500IU) INJ IM SCH (00:50)
[2022-10-29] MEDS: ACETAMINOPHEN 500 MG TAB PO PRN ×2 (03:11→17:04)
[2022-10-29] MEDS: IBUPROFEN 600MG TAB PO PRN ×3 (06:02→19:59)
[2022-10-29] MEDS: PRENATAL VITAMINS CHEWABLE TABLET PO SCH (10:55)
[2022-10-30] MEDS: ACETAMINOPHEN 500 MG TAB PO PRN (04:30)
[2022-10-30 06:00] VITALS: BP 106/54
[2022-10-30] MEDS: IBUPROFEN 600MG TAB PO PRN (08:08)
[2022-10-30] MEDS: PRENATAL VITAMINS CHEWABLE TABLET PO SCH (08:08)
[2022-10-31] MEDS ORDERED: MEASLES,MUMPS,RUBELLA VACCINE INJ (MMR-II) SC.IMMUN ONE (09:00)
== END 2022-10-30 15:10 | disposition home or self-care (01) | DRG 560 ==
LOC: M LDO 23:41 → M LDI 10-28 02:40 → M OBS 10-29 02:26
PROVIDERS: ADMIT Specialist; ATTEND Specialist
PROC: 0HQ9XZZ Repair Perineum Skin, External Approach (ICD-10-PCS; 2022-10-28)
PROC: 10E0XZZ Delivery of Products of Conception, External Approach (ICD-10-PCS; principal; 2022-10-29)
DX: O69.82X0 Labor and delivery complicated by other cord entanglement, without compression, not applicable or unspecified (principal); Z37.0 Single live birth; Z3A.39 39 weeks gestation of pregnancy; Z91.013 Allergy to seafood; O70.0 First degree perineal laceration during delivery

== ENCOUNTER 2024-01-12 09:55 | Emergency (ER) | payer OTHER ==
[~2024-01-12] VITALS: Ht 154.9 cm; Wt 52.3 kg
[~2024-01-12 09:55] MED LIST changes: +CELE0.09; -CELE1CAP9
[2024-01-12 12:16] LABS: BASO % 0.4 % (0.0-1.0); EOS % 0.8 % (0.0-3.0); HEMATOCRIT 40.1 % (36.0-47.0); HEMOGLOBIN 13.5 g/dl (12.0-15.5); LYMPH # 0.6 10^3/uL (1.5-5.0); LYMPH % 12.9 % (24.0-44.0); MEAN CORPUSCULAR HEMOGLOBIN 30.1 pg (27.0-33.0); MEAN CORPUSCULAR HGB CONC 33.7 g/dl (32.0-36.5); MEAN CORPUSCULAR VOLUME 89.3 fl (80.0-96.0); MONO # 0.3 10^3/uL (0.0-0.8); MONO % 6.3 % (2.0-8.0); NEUTROPHILS # 3.8 10^3/uL (1.5-8.5); NEUTROPHILS % 79.4 % (36.0-66.0); PLATELET COUNT, AUTOMATED 229 10^3/uL (150-450); RED BLOOD COUNT 4.49 10^6/uL (4.00-5.40); WHITE BLOOD COUNT 4.8 10^3/uL (4.0-10.0)
[2024-01-12 12:37] LABS: LIPASE 30 U/L (12-53)
[2024-01-12 12:38] LABS: AMYLASE 47 U/L (30-118)
[2024-01-12 12:39] LABS: ALBUMIN 3.9 G/DL (3.2-5.2); ALKALINE PHOSPHATASE 77 U/L (46-116); ALT/SGPT 12 U/L (7.0-40); AST/SGOT < 8 U/L (<34); BILIRUBIN,DIRECT 0.3 MG/DL (<0.4); BLOOD UREA NITROGEN 8 MG/DL (9-23); CALCIUM LEVEL 8.6 MG/DL (8.5-10.1); CARBON DIOXIDE LEVEL 25 MMOL/L (20-31); CHLORIDE LEVEL 106 MMOL/L (98-107); CREATININE FOR GFR 0.58 MG/DL (0.55-1.30); GLOMERULAR FILTRATION RATE > 60.0 (>60); GLUCOSE, FASTING 79 MG/DL (60-100); POTASSIUM SERUM 3.9 MMOL/L (3.5-5.1); SODIUM LEVEL 137 MMOL/L (136-145); TOTAL PROTEIN 6.8 G/DL (5.7-8.2)
[2024-01-12] MEDS: ONDANSETRON 4MG 2ML VIAL IV ONE (12:44)
[2024-01-12] MEDS: NS 1,000 ML IV ONE (12:44)
[2024-01-12] MEDS ORDERED: ONDA4TAB6 PO (14:33)
[2024-01-12] MEDS ORDERED: HOME MED LIST COMPLETE! XX SCH (14:40)
[2024-01-12 14:45] VITALS: BP 115/65; TEMP 98.1; O2SAT 100
== END 2024-01-12 15:00 | disposition home or self-care (01) ==
LOC: M ED 09:55
DX: O20.8 Other hemorrhage in early pregnancy (principal); O99.611 Diseases of the digestive system complicating pregnancy, first trimester; A09 Infectious gastroenteritis and colitis, unspecified; Z87.42 Personal history of other diseases of the female genital tract; Z91.013 Allergy to seafood; Z79.83 Long term (current) use of bisphosphonates; Z3A.01 Less than 8 weeks gestation of pregnancy
CPT/HCPCS: 76801; 76817; 80048; 80076; 81001; 82150; 83605; 83690; 84702; 85025; 86850; 86900; 86901; 87486; 87581; 87633; 87798; 93976; 96361; 96374; 99284; J2405

== ENCOUNTER 2024-01-19 22:12 | Emergency (ER) | payer OTHER ==
[~2024-01-19] VITALS: Ht 154.9 cm; Wt 48.6 kg
[2024-01-19 23:35] LABS: HEMATOCRIT 37.3 % (36.0-47.0); HEMOGLOBIN 12.6 g/dl (12.0-15.5); MEAN CORPUSCULAR HEMOGLOBIN 29.9 pg (27.0-33.0); MEAN CORPUSCULAR HGB CONC 33.8 g/dl (32.0-36.5); MEAN CORPUSCULAR VOLUME 88.6 fl (80.0-96.0); PLATELET COUNT, AUTOMATED 295 10^3/uL (150-450); RED BLOOD COUNT 4.21 10^6/uL (4.00-5.40); WHITE BLOOD COUNT 8.6 10^3/uL (4.0-10.0)
[2024-01-20 00:02] LABS: ALBUMIN 3.9 G/DL (3.2-5.2); ALKALINE PHOSPHATASE 61 U/L (46-116); ALT/SGPT 12 U/L (7.0-40); AST/SGOT < 8 U/L (<34); BILIRUBIN,TOTAL 0.4 MG/DL (0.3-1.2); BLOOD UREA NITROGEN 10 MG/DL (9-23); CALCIUM LEVEL 9.3 MG/DL (8.5-10.1); CARBON DIOXIDE LEVEL 26 MMOL/L (20-31); CHLORIDE LEVEL 106 MMOL/L (98-107); CREATININE FOR GFR 0.46 MG/DL (0.55-1.30); GLOMERULAR FILTRATION RATE > 60.0 (>60); GLUCOSE, FASTING 98 MG/DL (60-100); POTASSIUM SERUM 4.2 MMOL/L (3.5-5.1); SODIUM LEVEL 136 MMOL/L (136-145); TOTAL PROTEIN 6.9 G/DL (5.7-8.2)
[2024-01-20 00:18] LABS: HCG, SERUM QUANTITATIVE 53915.3 MIU/ML (<4.2)
[2024-01-20 02:17] VITALS: BP 121/74; TEMP 97.8; O2SAT 100
== END 2024-01-20 02:19 | disposition home or self-care (01) ==
LOC: M ED 22:12
DX: O26.851 Spotting complicating pregnancy, first trimester (principal); Z79.83 Long term (current) use of bisphosphonates; Z91.013 Allergy to seafood; Z3A.01 Less than 8 weeks gestation of pregnancy

== ENCOUNTER → 2024-02-14 | Outpatient (CLI) | payer OTHER ==
[2024-02-14 10:33] LABS: HEMATOCRIT 38.4 % (36.0-47.0); HEMOGLOBIN 12.7 g/dl (12.0-15.5); MEAN CORPUSCULAR HGB CONC 33.1 g/dl (32.0-36.5); MEAN CORPUSCULAR VOLUME 90.6 fl (80.0-96.0); PLATELET COUNT, AUTOMATED 231 10^3/uL (150-450); RED BLOOD COUNT 4.24 10^6/uL (4.00-5.40)
[2024-02-14 11:31] LABS: HIV 1&2 SCREEN NEGATIVE (NEGATIVE)
[2024-02-14 12:01] LABS: GC DNA AMPLIFICATION NEGATIVE (NEGATIVE)
== END ==
LOC: M PLALAB 08:41
PROVIDERS: ATTEND Advanced Practice Midwife
DX: Z34.91 Encounter for supervision of normal pregnancy, unspecified, first trimester (principal)

== ENCOUNTER → 2024-03-07 | Outpatient (REF) | payer OTHER | LOC: M PLALAB 09:41 | PROVIDERS: ATTEND Advanced Practice Midwife | DX: Z36.89 Encounter for other specified antenatal screening (principal); Z3A.13 13 weeks gestation of pregnancy ==

== ENCOUNTER → 2024-04-24 | Outpatient (CLI) | payer OTHER ==
[~2024-04-24] MED LIST changes: +ONDA-282 PO; -ONDA4TAB6 PO
== END ==
LOC: M WHC 15:08
PROVIDERS: ATTEND Advanced Practice Midwife
DX: O99.332 Smoking (tobacco) complicating pregnancy, second trimester (principal)

== ENCOUNTER → 2024-06-17 | Outpatient (CLI) | payer OTHER ==
[2024-06-17 11:42] LABS: GLUCOSE CHALLENGE TEST 1 HOUR 117 MG/DL (LESS THAN 140); HEMATOCRIT 33.1 % (36.0-47.0); HEMOGLOBIN 10.6 g/dl (12.0-15.5); MEAN CORPUSCULAR HEMOGLOBIN 29.4 pg (27.0-33.0); MEAN CORPUSCULAR VOLUME 91.9 fl (80.0-96.0); PLATELET COUNT, AUTOMATED 257 10^3/uL (150-450); WHITE BLOOD COUNT 8.8 10^3/uL (4.0-10.0)
[2024-06-17 12:11] LABS: HIV 1&2 SCREEN NEGATIVE (NEGATIVE)
[2024-06-17 12:19] LABS: HEPATITIS C VIRUS ABY INDEX 0.05 INDEX (<0.8)
[2024-06-17 12:21] LABS: GC DNA AMPLIFICATION NEGATIVE (NEGATIVE)
== END ==
LOC: M PLALAB 08:12
PROVIDERS: ATTEND Advanced Practice Midwife
DX: Z34.82 Encounter for supervision of other normal pregnancy, second trimester (principal); Z3A.00 Weeks of gestation of pregnancy not specified

== ENCOUNTER → 2024-08-23 | Outpatient (REF) | payer OTHER ==
[~2024-08-23] MED LIST changes: +ACET-683 PO; +IBUP80TA PO; +PRENCHW PO
== END ==
LOC: M PLALAB 15:06
PROVIDERS: ATTEND Nurse Practitioner Family
DX: O09.293 Supervision of pregnancy with other poor reproductive or obstetric history, third trimester (principal)

== ENCOUNTER 2024-08-26 13:28 | Outpatient (CLI) | payer OTHER ==
[~2024-08-26] VITALS: Ht 154.9 cm; Wt 61.2 kg
[~2024-08-26 13:28] MED LIST changes: -ACET-683 PO; -IBUP80TA PO; -PRENCHW PO
[2024-08-26] MEDS ORDERED: HOME MED LIST COMPLETE! XX SCH (13:40)
[2024-08-26 13:47] VITALS: BP 98/54
[2024-08-26 16:11] VITALS: BP 105/67
== END 2024-08-26 17:15 | disposition home or self-care (01) ==
LOC: M LDO 13:28
PROVIDERS: ATTEND Advanced Practice Midwife
DX: O47.1 False labor at or after 37 completed weeks of gestation (principal); Z3A.37 37 weeks gestation of pregnancy; Z91.013 Allergy to seafood
CPT/HCPCS: 59025; G0463

== ENCOUNTER 2024-09-04 15:14 | Inpatient (IN) | payer OTHER ==
[2024-09-04] VITALS (26 sets, daily range): BP systolic 81–153; BP diastolic 43–88; O2SAT 98–100
[~2024-09-04] VITALS: Ht 154.9 cm; Wt 62.2 kg
[2024-09-04] MEDS ORDERED: HOME MED LIST COMPLETE! XX SCH (15:35)
[2024-09-04] MEDS ORDERED: OXYTOCIN DRIP 30 UNITS in IV 1 EA IV PRN (15:45)
[2024-09-04] MEDS ORDERED: TRANEXAMIC ACID INJection 1,000 MG in NS 100 ML IV PRN (15:45)
[2024-09-04] MEDS ORDERED: LIDOCAINE 1% MDV 20ML VIAL INFIL PRN (15:45)
[2024-09-04] MEDS ORDERED: METHYLERGONOVINE MALEATE 0.2MG/ML 1ML VIAL IM PRN (15:45)
[2024-09-04] MEDS ORDERED: OXYTOCIN INJ 10UNITS/ML 1ML VIAL IM PRN (15:45)
[2024-09-04] MEDS ORDERED: CARBOPROST TROMETHAMINE 250 MCG/ML AMP IM PRN (15:45)
[2024-09-04] MEDS: LACTATED RINGER'S 1000 ML IV STA (16:13)
[2024-09-04 16:34] LABS: HEMATOCRIT 36.1 % (36.0-47.0); HEMOGLOBIN 11.4 g/dl (12.0-15.5); MEAN CORPUSCULAR HEMOGLOBIN 26.6 pg (27.0-33.0); MEAN CORPUSCULAR HGB CONC 31.6 g/dl (32.0-36.5); MEAN CORPUSCULAR VOLUME 84.1 fl (80.0-96.0); PLATELET COUNT, AUTOMATED 246 10^3/uL (150-450); RED BLOOD COUNT 4.29 10^6/uL (4.00-5.40); WHITE BLOOD COUNT 6.9 10^3/uL (4.0-10.0)
[2024-09-04] MEDS ORDERED: diphenhydrAMINE 50MG/ML VIAL IV PRN (17:00)
[2024-09-04] MEDS ORDERED: LR 500 ML IV PRN (17:00)
[2024-09-04] MEDS ORDERED: EPIDURAL/PCA KEYS XX PRN (17:00)
[2024-09-04] MEDS ORDERED: NALOXONE INJ 0.4MG/1ML VIAL IV PRN (17:00)
[2024-09-04] MEDS ORDERED: ePHEDrine SULFATE 25 MG/5 ML(5MG/ML) SYRINGE IVP PRN (17:00)
[2024-09-04] MEDS ORDERED: ONDANSETRON 4MG 2ML VIAL IV PRN (17:00)
[2024-09-04] MEDS ORDERED: FENTANYL 2MCG/ML ROPIVACAINE 0.2% IN 0.9% NACL 100ML IVBAG As Ordered ONE (17:08)
[2024-09-04] MEDS: LR 1,000 ML IV SCH (17:22)
[2024-09-04 17:42] LABS: HEPATITIS C VIRUS ABY INDEX 0.07 INDEX (<0.8)
[2024-09-04] MEDS: FENTANYL/ROPIVACAINE/NACL BAG 100 ML EPIDURAL SCH (17:42)
[2024-09-04] MEDS: OXYTOCIN DRIP 30 UNITS in IV 1 EA IV SCH (20:39)
[2024-09-04] MEDS ORDERED: METHYLERGONOVINE MALEATE 0.2 MG TAB PO PRN (22:25)
[2024-09-04] MEDS ORDERED: DOCUSATE SODIUM 100MG CAPSULE PO PRN (22:25)
[2024-09-04] MEDS: IBUPROFEN 800 MG TAB PO PRN (23:54)
[2024-09-05] MEDS: DIBUCAINE 1% OINTMENT 30GM TOP PRN (01:37)
[2024-09-05] MEDS: ACETAMINOPHEN 325 MG TAB PO PRN (01:44)
[2024-09-05] MEDS: ACETAMINOPHEN 500 MG TAB PO PRN (06:02)
[2024-09-05 06:05] VITALS: BP 115/55; O2SAT 98
[2024-09-05] MEDS: CALCIUM CARBONATE 500 MG CHEW U/D PO PRN (06:48)
[2024-09-05] MEDS: PRENATAL VITAMINS CHEWABLE TABLET PO SCH (08:54)
[2024-09-05] MEDS ORDERED: PRENCHW PO (09:10)
[2024-09-05] MEDS ORDERED: IBUP80TA PO (09:10)
[2024-09-05] MEDS ORDERED: ACET-683 PO (09:10)
[2024-09-05] MEDS: SIMETHICONE 80MG CHEW TAB PO PRN (14:14)
[2024-09-05 18:00] VITALS: BP 122/90; O2SAT 98
[2024-09-06] MEDS: IBUPROFEN 600MG TAB PO PRN (05:08)
[2024-09-06 06:00] VITALS: BP_SYST 107; BP_SYST 117; BP_DIAS 54; BP_DIAS 60; O2SAT 97; O2SAT 98
[2024-09-06] MEDS: RHOGAM 300MCG (1500IU) INJ IM SCH (07:34)
[2024-09-06] MEDS: MEASLES,MUMPS,RUBELLA VACCINE INJ (MMR-II) SC.IMMUN ONE (07:34)
== END 2024-09-06 11:49 | disposition home or self-care (01) | DRG 560 ==
LOC: M LDI 15:14 → M OBS 23:57
PROVIDERS: ADMIT Advanced Practice Midwife; ATTEND Advanced Practice Midwife
PROC: 10E0XZZ Delivery of Products of Conception, External Approach (ICD-10-PCS; principal; 2024-09-04)
PROC: 0HQ9XZZ Repair Perineum Skin, External Approach (ICD-10-PCS; 2024-09-04)
DX: O70.0 First degree perineal laceration during delivery (principal); Z37.0 Single live birth; Z3A.39 39 weeks gestation of pregnancy

== ENCOUNTER 2025-10-01 11:04 | Emergency (ER) | payer MEDICAID, OTHER ==
[~2025-10-01] VITALS: Ht 154.9 cm; Wt 54.5 kg
[~2025-10-01 11:04] MED LIST changes: +ACET-683 PO; +IBUP80TA PO; +PRENCHW PO
[2025-10-01 11:44] LABS: KETONE, URINE AUTO RFX NEGATIVE (NEGATIVE); LEUKOCYTE ESTERASE UR AUTO RFX NEGATIVE (NEGATIVE); MUCUS, URINE RFX SMALL (NEGATIVE); NITRITE, URINE AUTO RFX NEGATIVE (NEGATIVE); RBC, URINE AUTO RFX 0 /HPF (0-3); SQUAM EPITHELIAL CELL UR AURFX 3 /HPF (0-6); WBC, URINE AUTO RFX 2 /HPF (0-3)
[2025-10-01 12:01] LABS: BASO # 0.0 10^3/uL (0.0-0.2); BASO % 0.6 % (0.0-1.0); EOS # 0.2 10^3/uL (0.0-0.5); EOS % 3.4 % (0.0-3.0); LYMPH # 1.7 10^3/uL (1.5-5.0); LYMPH % 23.6 % (24.0-44.0); MONO # 0.4 10^3/uL (0.0-0.8); MONO % 6.3 % (2.0-8.0); NEUTROPHILS # 4.6 10^3/uL (1.5-8.5); NEUTROPHILS % 66.0 % (36.0-66.0); PLATELET COUNT, AUTOMATED 314 10^3/uL (150-450)
[2025-10-01 12:37] LABS: ALT/SGPT 14 U/L (7.0-40); AST/SGOT 9 U/L (<34); CALCIUM LEVEL 8.4 MG/DL (8.5-10.1); CARBON DIOXIDE LEVEL 26 MMOL/L (20-31); CHLORIDE LEVEL 106 MMOL/L (98-107); CREATININE FOR GFR 0.63 MG/DL (0.55-1.30); GLOMERULAR FILTRATION RATE > 90.0 (>60); POTASSIUM SERUM 4.3 MMOL/L (3.5-5.1); SODIUM LEVEL 141 MMOL/L (136-145)
[2025-10-01 13:25] LABS: URINE PREG TEST POSITIVE (NEGATIVE)
[2025-10-01 14:21] VITALS: BP 112/53; TEMP 98.5; O2SAT 100
== END 2025-10-01 14:31 | disposition home or self-care (01) ==
LOC: M ED 11:04
DX: O20.0 Threatened abortion (principal); Z3A.01 Less than 8 weeks gestation of pregnancy

== ENCOUNTER → 2025-10-03 | Outpatient (CLI) | payer OTHER | LOC: M LAB 17:06 | PROVIDERS: ATTEND Nurse Practitioner Family | DX: R10.20 Pelvic and perineal pain unspecified side (principal) ==